=== PATIENT | female | born 1960 | race Caucasian/White ===

== ENCOUNTER 2019-05-11 12:48 | Emergency (ER) | payer BC, OTHER ==
[2019-05-11 13:35] VITALS: BP 111/76; PULSE 94
[2019-05-11] MEDS ORDERED: Ondansetron 4 MG/2 ML SDV IVPUSH ONE (13:58)
[2019-05-11] MEDS ORDERED: Sodium Chloride 0.9% 1,000 ML IV SCH (14:00)
--- NOTE | 2019-05-11 14:09 | EDM.PDOC ---
ED HPI GENERAL MEDICAL PROBLEM - General Chief Complaint: Syncope Stated Complaint: SYNCOPE,VOMITING AND HAS NOT ATE FOR 5 DAYS Time Seen by Provider: 05/11/19 13:29 Source of Information: Reports: Patient, Family, RN Notes Reviewed - History of Present Illness INITIAL COMMENTS - FREE TEXT/NARRATIVE: 59 year old female became ill about 8 to 10 days ago with cough, fever, chills, achiness. She was started on tamiful bid which she is still taking. She has had poor appetite, worsening nausea and vomiting yesterday and today. She is still coughing a lot, occasionally productive. No chest pain at this time, mild intermittent abdominal cramping. She did get weak, dizzy lightheaded standing this AM not long ago, passed out briefly, found herself to be on the floor, no acut injury from the fall. She is diabetic. Blood sugar was over 400 early this morning about 10 hours ago. Headache Pain Score (Numeric/FACES): 7 - Related Data Allergies Allergy/AdvReac Type Severity Reaction Status Date / Time Cephalosporins Allergy Hives Verified 02/22/16 22:03 ciprofloxacin [From Cipro] Allergy Cannot Verified 02/22/16 22:03 Remember fluconazole [From Diflucan] Allergy Hives Verified 02/22/16 22:03 gabapentin Allergy Cannot Verified 02/22/16 22:03 Remember Home Meds: Home Meds Docusate Sodium 300 mg PO DAILY 05/10/15 [History] Insulin Degludec [Tresiba Flextouch U-100] 56 units SQ DAILY 05/10/15 [History] Levothyroxine Sodium [Synthroid] 137 mcg PO DAILY 05/10/15 [History] Potassium Chloride 20 meq PO QID 05/10/15 [History] Spironolactone [Aldactone] 50 mg PO BID 05/10/15 [History] Triamcinolone Acetonide [Triamcinolone Acetonide 0.1% Crm] 1 applic TOP BID 08/18 [History] Verapamil HCl [Verelan] 180 mg PO DAILY 05/10/15 [History] metOLazone [Metolazone] 5 mg PO TUFR 05/10/15 [History] Insulin Aspart [NovoLOG] 12 unit SUBCUT BID@0700,1100 01/09/16 [History] Insulin Aspart [NovoLOG] 17 unit SUBCUT DAILY@1700 01/09/16 [History] Famotidine [Pepcid] 20 mg PO DAILY #30 tablet 01/13/16 [Rx] Colchicine 0.6 mg PO BID 02/22/16 [History] Allopurinol [Zyloprim] 100 mg PO BID 02/23/16 [History] Hydrocodone/Acetaminophen [[place] 5-325] 1 each PO Q4HR PRN 02/23/16 [History] Acetaminophen/Butalbital/Caff [Fioricet 325-50-40 MG] 2 tab PO Q6H PRN #20 tablet 03/05/16 [Rx] Furosemide [Lasix] 20 mg PO BIDDIURETIC #60 tablet 03/05/16 [Rx] Pantoprazole [ProTONIX] 40 mg PO DAILY #30 tab.cr 03/05/16 [Rx] Sertraline HCl [Zoloft] 100 mg PO DAILY #30 tablet 03/05/16 [Rx] fentaNYL [Duragesic] 25 mcg TRDERM Q72H #5 patch 03/05/16 [Rx] oxyCODONE ER [OxyCONTIN] 20 mg PO Q12HR #20 tab.er 03/05/16 [Rx] Ondansetron [Zofran ODT] 4 mg PO Q8HR PRN #7 tab.dis 05/11/19 [Rx] Past Medical History HEENT History: Reports: Impaired Vision, Sinusitis Other HEENT History: wears eyeglasses, blurred vision, conjunctivitis Cardiovascular History: Reports: High Cholesterol, Hypertension, Other (See Below) Other Cardiovascular History: peripheral vascular insufficiency, hypokalemia, edema Respiratory History: Reports: Bronchitis, Recurrent, Other (See Below) Other Respiratory History: cough Gastrointestinal History: Reports: Chronic Constipation Genitourinary History: Reports: Retention, Urinary COMM[employer] History: Reports: , Spontaneous Musculoskeletal History: Reports: Arthritis, Gout, Other (See Below) Other Musculoskeletal History: Carpal tunnel Neurological History: Reports: Migraines Psychiatric History: Reports: None Endocrine/Metabolic History: Reports: Diabetes, Type II, Hypothyroidism, IDDM, Obesity/BMI 30+ Hematologic History: Reports: Anemia Oncologic (Cancer) History: Reports: Breast Dermatologic History: Reports: Chronic Cellulitis, Eczema, Other (See Below) Other Dermatologic History: dermatophytosis of foot, rash, cellulitis - Infectious Disease History Infectious Disease History: Reports: Chicken Pox, Influenza, Measles - Past Surgical History Neurological Surgical History: Reports: None Oncologic Surgical History: Reports: Mastectomy Other Oncologic Surgeries/Procedures: mastectomy in 2002 Social & Family History - Family History Family Medical History: Noncontributory Cardiac: Reports: High Cholesterol, Hypertension OBGYN: Reports: Musculoskeletal: Reports: RA Neurological: Reports: CVA Endocrine/Metabolic: Reports: Diabetes, type II Dermatologic: Reports: Eczema, Seborrheic Dermatitis Oncologic: Reports: Breast, Colon, Prostate - Tobacco Use Smoking Status *Q: Never Smoker Second Hand Smoke Exposure: No - Caffeine Use Caffeine Use: Reports: Soda Caffeine Use Comment: "occassionally" - Recreational Drug Use Recreational Drug Use: No - Living Situation & Occupation Living situation: Reports: Occupation: Disabled ED ROS GENERAL - Review of Systems Review Of Systems: See Below Constitutional: Reports: Fever (gone), Chills HEENT: Reports: Rhinitis (now better), Throat Pain (now better) Respiratory: Reports: Cough, Sputum Cardiovascular: Reports: Chest Pain (with coughing) Endocrine: Reports: Fatigue GI/Abdominal: Reports: Vomiting (occasional). Denies: Abdominal Pain Musculoskeletal: Reports: Other (generalized achiness) Skin: Denies: Rash Neurological: Reports: Dizziness, Headache. Denies: Numbness, Pre-Existing Deficit, Tingling, Difficulty Walking ED EXAM, NEURO - Physical Exam Exam: See Below General Appearance: Alert, Moderate Distress Eye Exam: Bilateral Eye: PERRL Throat/Mouth: Normal Voice, Other (Oral mucosa moderately dry). No: Inflammation Head Exam: Atraumatic. No: Facial Swelling Neck: Supple Respiratory/Chest: No Respiratory Distress, Lungs Clear, Normal Breath Sounds Cardiovascular: Regular Rate, Rhythm GI/Abdominal: Soft, Non-Tender Neurological: Alert, No Motor/Sensory Deficits Back Exam: No: CVA Tenderness (L), CVA Tenderness (R) Extremities: Normal Inspection, Normal Range of Motion. No: Leg Pain, Increased Warmth, Redness Skin Exam: Warm, Intact, Normal Color, No Rash Course - Vital Signs Last Recorded V/S: Last Vital Signs Temp 97.5 F 05/11/19 13:25 Pulse 94 05/11/19 13:25 Resp 16 02/06/20 13:25 BP 111/76 05/11/19 13:25 Pulse Ox 97 05/11/19 13:25 - Orders/Labs/Meds Labs: Laboratory Tests 05/11/19 05/11/19 05/11/19 Range/Units 13:48 13:48 14:06 WBC 9.31 (3.98-10.04) K/mm3 RBC 5.58 H (3.98-5.22) M/mm3 Hgb 17.4 H D (11.2-15.7) gm/dl Hct 49.5 H (34.1-44.9) % MCV 88.7 (79.4-94.8) fl MCH 31.2 (25.6-32.2) pg MCHC 35.2 (32.2-35.5) g/dl RDW Std Deviation 46.0 (36.4-46.3) fL Plt Count 174 L D (182-369) K/mm3 MPV 12.2 (9.4-12.3) fl Neut % (Auto) 74.9 H (34.0-71.1) % Lymph % (Auto) 13.0 L (19.3-51.7) % [place] % (Auto) 11.6 (4.7-12.5) % Eos % (Auto) 0.2 L (0.7-5.8) Baso % (Auto) 0.1 (0.1-1.2) % Neut # (Auto) 6.97 H (1.56-6.13) K/mm3 Lymph # (Auto) 1.21 (1.18-3.74) K/mm3 [place] # (Auto) 1.08 H (0.24-0.36) K/mm3 Eos # (Auto) 0.02 L (0.04-0.36) K/mm3 Baso # (Auto) 0.01 (0.01-0.08) K/mm3 Sodium 126 L D (136-145) mEq/L Potassium 3.2 L (3.5-5.1) mEq/L Chloride 82 L D (98-107) mEq/L Carbon Dioxide 34 H (21-32) mEq/L Anion Gap 13.2 (5-15) BUN 87 H D (7-18) mg/dL Creatinine 1.7 H (0.55-1.02) mg/dL Est Cr Clr Drug Dosing TNP Estimated GFR (MDRD) 31 (>60) mL/min BUN/Creatinine Ratio 51.2 H (14-18) Glucose 312 H (80-115) mg/dL POC Glucose 301 H (80-115) mg/dL Calcium 9.7 (8.5-10.1) mg/dL Total Bilirubin 0.8 (0.2-1.0) mg/dL AST 19 (15-37) U/L ALT 31 (14-59) U/L Alkaline Phosphatase 160 H (46-116) U/L Total Protein 7.9 (6.4-8.2) g/dl Albumin 4.1 (3.4-5.0) g/dl Globulin 3.8 gm/dL Albumin/Globulin Ratio 1.1 (1-2) 05/11/19 Range/Units 15:47 WBC (3.98-10.04) K/mm3 RBC (3.98-5.22) M/mm3 Hgb (11.2-15.7) gm/dl Hct (34.1-44.9) % MCV (79.4-94.8) fl MCH (25.6-32.2) pg MCHC (32.2-35.5) g/dl RDW Std Deviation (36.4-46.3) fL Plt Count (182-369) K/mm3 MPV (9.4-12.3) fl Neut % (Auto) (34.0-71.1) % Lymph % (Auto) (19.3-51.7) % [place] % (Auto) (4.7-12.5) % Eos % (Auto) (0.7-5.8) Baso % (Auto) (0.1-1.2) % Neut # (Auto) (1.56-6.13) K/mm3 Lymph # (Auto) (1.18-3.74) K/mm3 [place] # (Auto) (0.24-0.36) K/mm3 Eos # (Auto) (0.04-0.36) K/mm3 Baso # (Auto) (0.01-0.08) K/mm3 Sodium (136-145) mEq/L Potassium (3.5-5.1) mEq/L Chloride (98-107) mEq/L Carbon Dioxide (21-32) mEq/L Anion Gap (5-15) BUN (7-18) mg/dL Creatinine (0.55-1.02) mg/dL Est Cr Clr Drug Dosing Estimated GFR (MDRD) (>60) mL/min BUN/Creatinine Ratio (14-18) Glucose (80-115) mg/dL POC Glucose 301 H (80-115) mg/dL Calcium (8.5-10.1) mg/dL Total Bilirubin (0.2-1.0) mg/dL AST (15-37) U/L ALT (14-59) U/L Alkaline Phosphatase (46-116) U/L Total Protein (6.4-8.2) g/dl Albumin (3.4-5.0) g/dl Globulin gm/dL Albumin/Globulin Ratio (1-2) Meds: Medications Discontinued Medications Generic Name Dose Route Start Last Admin Trade Name Freq PRN Reason Stop Dose Admin Sodium Chloride 1,000 mls @ 999 mls/hr 05/11/19 14:00 05/11/19 14:07 Normal Saline IV 999 mls/hr ONETIME COREEN Administration Lactated Ringer's 1,000 mls @ 150 mls/hr 05/11/19 15:45 05/11/19 15:48 Ringers, Lactated IV 150 mls/hr ASDIRECTED COREEN Administration Insulin Human Regular 8 unit 05/11/19 14:26 05/11/19 14:49 Humulin R SUBCUT 05/11/19 14:27 8 unit ONETIME ONE Administration Insulin Human Regular 4 unit 05/11/19 16:31 05/11/19 17:20 Humulin R SUBCUT 05/11/19 16:32 4 unit ONETIME ONE Administration Ondansetron HCl 4 mg 05/11/19 13:58 05/11/19 14:07 Zofran IVPUSH 05/11/19 13:59 4 mg ONETIME ONE Administration Ondansetron HCl 4 mg 05/11/19 17:34 05/11/19 17:52 Zofran Odt PO 05/11/19 17:35 4 mg ONETIME ONE Administration - Re-Assessments/Exams Free Text/Narrative Re-Assessment/Exam: 05/13/19 08:51 Patient was treated with IV fluid, IV Zofran, 2 doses of insulin subcutaneous short acting. With all of that her symptoms did improve. Chest x-ray did not show pneumonia. Discharge instructions as documented. Departure - Departure Time of Disposition: 17:46 Disposition: Home, Self-Care 01 Condition: Fair Clinical Impression: Influenza, Bronchitis, Vomiting, Syncope - Discharge Information Prescriptions: Ondansetron [Zofran ODT] 4 mg PO Q8HR PRN #7 tab.dis PRN Reason: Nausea/Vomiting Instructions: Acute Bronchitis, Adult Referrals: Ramin Palencia MD [Primary Care Provider] - Forms: ED Department Discharge Additional Instructions: Stop the Tamiflu, clear liquids and bland diet as tolerated, drink plenty of water to maintain hydration. Vaporizer or steam as needed for cough. Follow-up clinic if not much better within 3-5 days as expected. Return to ED as needed. Sepsis Event Note - Evaluation Sepsis Screening Result: No Definite Risk - Focused Exam Date Exam was Performed: 05/13/19 Time Exam was Performed: 08:47
[2019-05-11] MEDS ORDERED: Insulin Regular, Human 100 Units/ML 3 ML Vial SUBCUT ONE ×2 (14:26→16:31)
--- NOTE | 2019-05-11 14:34 | CR ---
Chest: Portable view of the chest was obtained. Comparison: Previous chest x-ray of 02/24/16. Heart size is normal. Upper mediastinum is normal. Lungs are clear. Degenerative endplate spurring is noted within the spine. Surgical clips are seen within left axillary region. Impression: 1. Nothing acute is appreciated on portable chest x-ray. Diagnostic code #2 Study was dictated in [place] Standard Time
[2019-05-11] MEDS ORDERED: Lactated Ringers 1,000 ML IV SCH (15:45)
[2019-05-11] MEDS ORDERED: Ondansetron 4 MG Tab.DIS PO ONE (17:34)
== END 2019-05-11 17:56 | disposition home or self-care (01) ==
LOC: JD.ED 12:48
DX: J11.1 Influenza due to unidentified influenza virus with other respiratory manifestations (principal); R55 Syncope and collapse; E11.9 Type 2 diabetes mellitus without complications; M10.9 Gout, unspecified; E03.9 Hypothyroidism, unspecified; E66.9 Obesity, unspecified; Z86.73 Personal history of transient ischemic attack (TIA), and cerebral infarction without residual deficits; Z79.4 Long term (current) use of insulin; Z88.8 Allergy status to other drugs, medicaments and biological substances
CPT/HCPCS: 36415; 71045; 80053; 82962; 85025; 96361; 96374; 99284; A9270; J1815; J2405; J7030; J7120

== ENCOUNTER 2020-04-10 10:56 | Inpatient (IN) | payer OTHER ==
[2020-04-10] MEDS ORDERED: Ondansetron 4 MG/2 ML SDV IV PRN (11:13)
[2020-04-10] MEDS ORDERED: FLU VACC QS2020-21(6MOS UP)/PF 60 MCG/0.5 ML SYRINGE IM ONE (11:30)
[2020-04-10] MEDS ORDERED: Sodium Chloride 0.9% 10 ML Syringe FLUSH PRN (11:44)
[2020-04-10] MEDS ORDERED: Lactated Ringers 1,000 ML IV SCH (12:15)
[2020-04-10] MEDS: Acetaminophen 325 MG Tab PO PRN ×2 (12:38→21:00)
[2020-04-10 12:55] LABS: HEMOGLOBIN A1C 10.3 % (4.50-6.20)
[2020-04-10] MEDS ORDERED: Meropenem Premix 500 MG in Premix Bag 1 BAG IV SCH (13:00)
--- NOTE | 2020-04-10 13:03 | PCM.HP.2 ---
H&P History of Present Illness - General Date of Service: 04/10/20 Admit Problem/Dx: Admission Diagnosis/Problem Admission Diagnosis/Problem Foot infection Source of Information: Patient, Old Records, Provider, RN, RN Notes Reviewed History Limitations: Reports: No Limitations - History of Present Illness Initial Comments - Free Text/Narative: This is a 60-year-old female who presents as a direct admit from her primary care provider, Dr. Palencia. Patient reports worsening third digit right toe pain which has been ongoing for 4 to 5 days. Patient has a rather lengthy prior medical history including significant bilateral lower extremity edema, breast cancer status postmastectomy, hyperlipidemia, type II DM on insulin therapy, hypothyroidism, prior MRSA infection, gout, obesity, CKD stage III, hypertension, PVD. Her primary care provider she has not followed up with him in over a year. Patient is on both long and short acting insulin including somewhat of a sliding scale. Patient reports she is instructed to take her blood sugar at least 3 times a day but she has not been doing that. She reports she pretty much always checks it at least once a day. Reports blood sugars have been in the 200s. Reports that she has often missed her insulin dosing and has at times ran out of medications. She reports that she was unaware her toe infection was so severe, but does note that it has been quite painful. She reports for a while she was taping 1 toe to the other. Reports she has been unable to remain off her feet and this is likely a contributing factor. She reports an unintentional 60 pound weight loss over the past 6 months or so. She denies any recent fever, chills, chest pain, shortness of breath, abdominal pain, constipation, diarrhea, nausea, vomiting, dizziness, urinary symptoms. She reports she is allergic to several different antibiotics including cephalosporins and Cipro. On examination there is a very significant ulcer on her third digit with erythema extending up to the ankle. Area is very warm to touch. There is significant sloughing skin. Patient was made aware by her primary care provider that her toe may need to be amputated, and if this is the case we have no one locally who will do it while she is inpatient. This could mean she may be transferred to [place]. She subsequently admitted inpatient for IV antibiotics and further work-up of her toe infection, rule out osteomyelitis. She is a DNR/DNI. - Related Data Allergies/Adverse Reactions: Allergies Allergy/AdvReac Type Severity Reaction Status Date / Time Cephalosporins Allergy Hives Verified 02/22/16 22:03 ciprofloxacin [From Cipro] Allergy Cannot Verified 02/22/16 22:03 Remember fluconazole [From Diflucan] Allergy Hives Verified 02/22/16 22:03 gabapentin Allergy Cannot Verified 02/22/16 22:03 Remember latex Allergy Rash Verified 04/10/20 11:30 Home Medications: Home Meds Docusate Sodium 100 mg PO DAILY PRN 05/10/15 [History] Insulin Degludec [Tresiba Flextouch U-100] 70 units SQ DAILY 05/10/15 [History] Levothyroxine Sodium [Synthroid] 137 mcg PO DAILY 05/10/15 [History] Potassium Chloride 20 meq PO QID 05/10/15 [History] Spironolactone [Aldactone] 50 mg PO BID 05/10/15 [History] Verapamil HCl [Verelan] 180 mg PO DAILY 05/10/15 [History] metOLazone [Metolazone] 5 mg PO ASDIRECTED 05/10/15 [History] Insulin Aspart [NovoLOG] 14 - 20 unit SUBCUT ASDIRECTED 01/09/16 [History] Colchicine 0.6 mg PO DAILY 02/22/16 [History] Allopurinol [Zyloprim] 200 mg PO DAILY 02/23/16 [History] Ondansetron [Zofran ODT] 4 mg PO Q8HR PRN #7 tab.dis 05/11/19 [Rx] Allopurinol [Zyloprim] 300 mg PO DAILY 04/10/20 [History] Cinnamon Bark [Cinnamon] 500 mg PO DAILY 04/10/20 [History] Diclofenac Sodium [Voltaren] 1 - 2 gram TOP BID 04/10/20 [History] Furosemide 20 mg PO BID 04/10/20 [History] Furosemide [Lasix] 80 mg PO BIDDIURETIC 04/10/20 [History] diphenhydrAMINE HCL [Benadryl Allergy] 25 mg PO Q4HR PRN 04/10/20 [History] Past Medical History HEENT History: Reports: Impaired Vision, Sinusitis Other HEENT History: wears eyeglasses, blurred vision, conjunctivitis Cardiovascular History: Reports: High Cholesterol, Hypertension, Other (See Below) Other Cardiovascular History: peripheral vascular insufficiency, hypokalemia, edema Respiratory History: Reports: Bronchitis, Recurrent Other Respiratory History: cough Gastrointestinal History: Reports: Chronic Constipation Genitourinary History: Reports: Retention, Urinary PROPERTY OFFICER History: Reports: , Spontaneous Musculoskeletal History: Reports: Arthritis, Gout, Other (See Below) Other Musculoskeletal History: Carpal tunnel Neurological History: Reports: Migraines Psychiatric History: Reports: None Endocrine/Metabolic History: Reports: Diabetes, Type II, Hypothyroidism, IDDM, Obesity/BMI 30+ Hematologic History: Reports: Anemia Oncologic (Cancer) History: Reports: Breast Dermatologic History: Reports: Chronic Cellulitis, Eczema, Other (See Below) Other Dermatologic History: dermatophytosis of foot, rash, cellulitis - Infectious Disease History Infectious Disease History: Reports: Chicken Pox, Influenza, Measles - Past Surgical History HEENT Surgical History: Reports: Tonsillectomy Cardiovascular Surgical History: Reports: None Respiratory Surgical History: Reports: None GI Surgical History: Reports: Colonoscopy Female Surgical History: Reports: D&C, Mastectomy Other Female Surgeries/Procedures: L mastectomy Endocrine Surgical History: Reports: None Neurological Surgical History: Reports: None Oncologic Surgical History: Reports: Mastectomy Other Oncologic Surgeries/Procedures: mastectomy in 2002 Social & Family History - Family History Family Medical History: No Pertinent Family History Cardiac: Reports: High Cholesterol, Hypertension OBGYN: Reports: Musculoskeletal: Reports: RA Neurological: Reports: CVA Endocrine/Metabolic: Reports: Diabetes, type II Dermatologic: Reports: Eczema, Seborrheic Dermatitis Oncologic: Reports: Breast, Colon, Prostate - Tobacco Use Tobacco Use Status *Q: Never Tobacco User - Caffeine Use Caffeine Use: Reports: Soda Caffeine Use Comment: "occassionally" - Recreational Drug Use Recreational Drug Use: No - Living Situation & Occupation Living situation: Reports: Occupation: Disabled H&P Review of Systems - Review of Systems: Review Of Systems: See Below General: Reports: Weight Loss. Denies: Fever, Chills, Malaise, Weakness, Fatigue HEENT: Reports: No Symptoms. Denies: Headaches, Sore Throat Pulmonary: Reports: No Symptoms. Denies: Shortness of Breath, Wheezing, Pleuritic Chest Pain, Cough, Sputum Cardiovascular: Reports: Edema (chronic ). Denies: Chest Pain, Palpitations Gastrointestinal: Reports: No Symptoms. Denies: Abdominal Pain, Constipation, Diarrhea, Nausea, Vomiting Genitourinary: Reports: No Symptoms. Denies: Pain Musculoskeletal: Reports: Foot Pain (right ) Skin: Reports: No Symptoms. Denies: Cyanosis Psychiatric: Reports: No Symptoms. Denies: Confusion Neurological: Reports: No Symptoms. Denies: Numbness, Tingling, Difficulty Walking, Weakness, Gait Disturbance Hematologic/Lymphatic: Reports: No Symptoms Immunologic: Reports: No Symptoms Exam - Exam Exam: See Below - Vital Signs Vital Signs: Last Vital Signs Temp 98.1 F 04/10/20 11:14 Pulse 79 04/10/20 11:16 Resp 16 04/10/20 11:14 BP 109/59 L 04/10/20 11:14 Pulse Ox 99 04/10/20 11:16 Weight: 216 lb 8 oz - Exam Quality Assessment: DVT Prophylaxis. No: Supplemental Oxygen General: Alert, Oriented, Cooperative. No: Mild Distress HEENT: Conjunctiva Clear, EACs Clear, Mucosa Moist & [place], Posterior Pharynx Clear Neck: Supple, Trachea Midline Lungs: Clear to Auscultation, Normal Respiratory Effort Cardiovascular: Regular Rate, Regular Rhythm GI/Abdominal Exam: Normal Bowel Sounds, Soft, Non-Tender, No Distention (Female) Exam: Deferred Rectal (Female) Exam: Deferred Back Exam: Normal Inspection, Full Range of Motion Extremities: Normal Range of Motion, Normal Capillary Refill, Pedal Edema (4+ bilaterally ), Leg Pain, Increased Warmth, Redness (dorsal aspect of foot up to ankle. ), Other (Bilateral discoloration and scaly skin of lower extremities consistent with PVD. Large ulcer on 3rd digit with skin sluffing off. ) Peripheral Pulses: 2+: Radial (L), Radial (R) Skin: Warm, Dry, Intact Neurological: Cranial Nerves Intact (Grossly ) Neuro Extensive - Mental Status: Alert, Oriented x3, Normal Mood/Affect - Patient Data Lab Results Last 24 hrs: Laboratory Results - last 24 hr 04/10/20 Range/Units 12:15 WBC 13.60 H (3.98-10.04) K/mm3 RBC 4.28 (3.98-5.22) M/mm3 Hgb 13.4 D (11.2-15.7) gm/dl Hct 39.9 (34.1-44.9) % MCV 93.2 D (79.4-94.8) fl MCH 31.3 (25.6-32.2) pg MCHC 33.6 (32.2-35.5) g/dl RDW Std Deviation 44.7 (36.4-46.3) fL Plt Count 266 D (182-369) K/mm3 MPV 10.5 (9.4-12.3) fl Neut % (Auto) 79.8 H (34.0-71.1) % Lymph % (Auto) 10.9 L (19.3-51.7) % Lane % (Auto) 7.7 (4.7-12.5) % Eos % (Auto) 1.0 (0.7-5.8) Baso % (Auto) 0.1 (0.1-1.2) % Neut # (Auto) 10.84 H (1.56-6.13) K/mm3 Lymph # (Auto) 1.48 (1.18-3.74) K/mm3 Lane # (Auto) 1.05 H (0.24-0.36) K/mm3 Eos # (Auto) 0.14 (0.04-0.36) K/mm3 Baso # (Auto) 0.02 (0.01-0.08) K/mm3 Manual Slide Review Normal smear Result Diagrams: 04/10/20 12:15 04/10/20 12:15 Sepsis Event Note - Focused Exam Vital Signs: Vital Signs Temp Pulse Resp BP Pulse Ox 04/10/20 11:16 79 99 04/10/20 11:14 98.1 F 16 109/59 L - Problem List (1) Cellulitis of right foot SNOMED Code(s): 342497144 ICD Code: L03.115 - CELLULITIS OF RIGHT LOWER LIMB Status: Acute Priority: High Current Visit: Yes (2) Chronic venous insufficiency SNOMED Code(s): 37056827, 21932255 ICD Code: I87.2 - VENOUS INSUFFICIENCY (CHRONIC) (PERIPHERAL) Status: Chronic Priority: Medium Current Visit: Yes (3) History of MRSA infection SNOMED Code(s): 998523762, 349826421 ICD Code: Z86.14 - PERSONAL HISTORY OF METHICILLIN RESIS STAPH INFECTION Status: Chronic Priority: Medium Current Visit: No (4) Fibromyalgia SNOMED Code(s): 314691604 ICD Code: M79.7 - FIBROMYALGIA Status: Chronic Priority: Low Current Visit: No (5) Weight loss SNOMED Code(s): 32931426, 765567269 ICD Code: R63.4 - ABNORMAL WEIGHT LOSS Status: Acute Priority: High Current Visit: Yes (6) Lymphedema of both lower extremities SNOMED Code(s): 78271069776866122 ICD Code: I89.0 - LYMPHEDEMA, NOT ELSEWHERE CLASSIFIED Status: Chronic Priority: Low Current Visit: No (7) Diabetes mellitus SNOMED Code(s): 58042041 ICD Code: E11.9 - TYPE 2 DIABETES MELLITUS WITHOUT COMPLICATIONS Status: Chronic Priority: Medium Current Visit: No Qualifiers: Diabetes mellitus type: type 2 Diabetes mellitus buttermaker continuous churn insulin use: with buttermaker continuous churn use Diabetes mellitus complication status: with hyperglycemia Qualified Code(s): E11.65 - Type 2 diabetes mellitus with hyperglycemia; Z79.4 - group home (current) use of insulin (8) Hyperlipidemia SNOMED Code(s): 05980316 ICD Code: E78.5 - HYPERLIPIDEMIA, UNSPECIFIED Status: Chronic Priority: Medium Current Visit: No (9) Hypothyroidism SNOMED Code(s): 25333286 ICD Code: E03.9 - HYPOTHYROIDISM, UNSPECIFIED Status: Chronic Priority: Low Current Visit: No Qualifiers: Hypothyroidism type: unspecified Qualified Code(s): E03.9 - Hypothyroidism, unspecified (10) Morbid obesity SNOMED Code(s): 788569600 ICD Code: E66.01 - MORBID (SEVERE) OBESITY DUE TO EXCESS CALORIES Status: Chronic Priority: Medium Current Visit: No (11) S/P left mastectomy SNOMED Code(s): 533925915, 395216808 ICD Code: Z90.12 - ACQUIRED ABSENCE OF LEFT BREAST AND NIPPLE Status: Chronic Priority: Low Current Visit: No (12) CKD stage 3 secondary to diabetes SNOMED Code(s): 346735724, 805752867 ICD Code: E11.22 - TYPE 2 DIABETES MELLITUS W DIABETIC CHRONIC KIDNEY DISEASE; N18.30 - CHRONIC KIDNEY DISEASE, STAGE 3 UNSPECIFIED Status: Chronic Priority: High Current Visit: Yes (13) Medical non-compliance SNOMED Code(s): 482611630 ICD Code: Z91.19 - PATIENT'S NONCOMPLIANCE W OTH MEDICAL TREATMENT AND REGIMEN Status: Acute Priority: High Current Visit: Yes (14) Diabetic foot ulcer SNOMED Code(s): 369055843 ICD Code: E11.621 - TYPE 2 DIABETES MELLITUS WITH FOOT ULCER; L97.509 - NON- PRESSURE CHRONIC ULCER OTH PRT UNSP FOOT W UNSP SEVERITY Status: Acute Priority: High Current Visit: Yes Qualifiers: Diabetic foot ulcer location: toe Diabetes mellitus type: type 2 Laterality: right Non-pressure ulcer stage: unspecified non-pressure ulcer stage Qualified Code(s): E11.621 - Type 2 diabetes mellitus with foot ulcer; L97.519 - Non-pressure chronic ulcer of other part of right foot with unspecified severity (15) Hyponatremia SNOMED Code(s): 67599578 ICD Code: E87.1 - HYPO-OSMOLALITY AND HYPONATREMIA Status: Acute Current Visit: Yes (16) Hypokalemia due to loss of potassium SNOMED Code(s): 54110772 ICD Code: E87.6 - HYPOKALEMIA Status: Acute Current Visit: No Problem List Initiated/Reviewed/Updated: Yes Orders Last 24hrs: Active Orders 24 hr Category Date Time Status Admission Status [Patient Status] [ADT] Routine ADT 04/10/20 11:10 Active Height and Weight [RC] 06 Care 04/10/20 11:13 Active Influenza Vaccine Charge [RC] .DISCHARGE Care 04/10/20 11:18 Active Intake and Output [RC] 04,16 Care 04/10/20 11:13 Active Nurse Communication: Isolation [RC] ASDIRECTED Care 04/10/20 11:56 Active Oxygen Therapy [RC] PRN Care 04/10/20 11:13 Active Peripheral IV Care [RC] . DIRECTED Care 04/10/20 11:44 Active Pulse Oximetry [RC] PRN Care 04/10/20 11:13 Active Up With Assistance [RC] ASDIRECTED Care 04/10/20 11:13 Active VTE/DVT Education [RC] PER UNIT ROUTINE Care 04/10/20 11:13 Active Vital Signs [RC] Q4HR Care 04/10/20 11:13 Active Consult to Case Management/Ash Handler [CONS] Cons 04/10/20 11:47 Active Routine Consult to Diabetic Nurse Specialist [CONS] Routine Cons 04/10/20 11:47 Active Consult to Dietary [Consult to Well Puller Head] [CONS] Cons 04/10/20 11:47 Active Routine Consult to Physical Therapy [PT Evaluation and Cons 04/10/20 11:57 Active Treatment] [CONS] Routine Consistent Carbohydrate Diet [DIET] Diet 04/10/20 Dinner Active Foot wo Cont Rt [MR] Routine Exams 04/10/20 11:50 Ordered A1C [GLYCOSYLATED HEMOGLOBIN,HGBA1C] [CHEM] Routine Lab 04/10/20 12:15 Received C-REACTIVE PROTEIN [CHEM] Routine Lab 04/10/20 12:15 Received CMP [COMPREHENSIVE METABOLIC PN,CMP] [CHEM] Routine Lab 04/10/20 12:15 Received CORONAVIRUS COVID-19 WENDI [MOLEC] Routine Lab 04/10/20 11:48 Ordered CULTURE WOUND [RM] Routine Lab 04/10/20 12:00 Received ESR [SEDIMENTATION RATE AUTO] [HEME] Routine Lab 04/10/20 12:15 Received MAGNESIUM [CHEM] Routine Lab 04/10/20 12:15 Received PROCALCITONIN [REF] Routine Lab 04/10/20 12:15 Received TSH [CHEM] Routine Lab 04/10/20 12:15 Received URIC ACID [CHEM] Routine Lab 04/10/20 12:55 Ordered Acetaminophen [TylenoL] Med 04/10/20 11:13 Active 650 mg PO Q4H PRN Lactated Ringers [Ringers, Lactated] 1,000 ml Med 04/10/20 12:15 Active IV ASDIRECTED Linezolid [Zyvox] 600 mg Med 04/10/20 12:15 Pending Premix Bag 1 bag IV Q12H Ondansetron [Zofran] Med 04/10/20 11:13 Active 4 mg IV Q6H PRN Piperacillin/Tazobactam [Piperacil-Tazobact] 4.5 gm Med 04/10/20 12:04 Ordered Sodium Chloride 0.9% [Normal Saline] 100 ml IV ONETIME Sodium Chloride 0.9% [Saline Flush] Med 04/10/20 11:44 Active 10 ml FLUSH ASDIRECTED PRN Isolation [COMM] Routine Oth 04/10/20 11:56 Ordered Peripheral IV Insertion Adult [OM.PC] Routine Oth 04/10/20 11:44 Ordered Resuscitation Status Routine Resus Stat 04/10/20 11:29 Ordered Medication Orders Acetaminophen (Tylenol) 650 mg PO Q4H PRN PRN Reason: Pain (Mild 1-3)/fever Last Admin: 04/10/20 12:38 Dose: 650 mg Documented by: WILLIAM Lactated Ringer's (Ringers, Lactated) 1,000 mls @ 75 mls/hr IV ASDIRECTED COREEN Stop: 04/11/20 01:34 Linezolid 600 mg/ Premix 300 mls @ 300 mls/hr IV Q12H COREEN Piperacillin Sod/Tazobactam (Sod 4.5 gm/ Sodium Chloride) 100 mls @ 200 mls/hr IV ONETIME ONE Stop: 04/10/20 12:33 Ondansetron HCl (Zofran) 4 mg IV Q6H PRN PRN Reason: Nausea/Vomiting Sodium Chloride (Saline Flush) 10 ml FLUSH ASDIRECTED PRN PRN Reason: Keep Vein Open Assessment/Plan Comment:: Assessment - Day of admission - 04/10/2020 * 60 yo female sent over by PCP, Dr. Palencia for direct admit due to diabetic foot ulcer of right 3rd digit * Patient reports ulcer present for past 4-5 days * Significant ulcer noted with sluffing of skin * Denies fever, chills, or other infectious symptoms * Insulin dependent diabetic who reports she forgets to check blood glucose or take meds at times. Has meds run out occasionally. * History of: 2 DM, hypertension, lymphedema, morbid obesity, MRSA infection, PVD, fibromyalgia, hyperlipidemia, CKD stage III, Gout * Reports blood sugars have been in the two hundreds recently. * Per primary care provider patient has not followed up in over a year. * Patient also reports approximately 60 pound weight loss over past 6 months, unintentional * Renal function appears to be near baseline per prior notes * Labs: * WBC 13.60 * Hemoglobin 13.4 * Platelet 266 * Absolute neutrophils 10.84 * ESR of 83 * Sodium 129 * Potassium 3.1 * Chloride 89 * Carbon dioxide 32 * Anion gap 11.1 * BUN 53 * Creatinine 1.6 * GFR 33 * Glucose 220 * A1c 10.3 * Uric acid 5.4 * Magnesium 2.1 * Bilirubin 0.5 * AST 20, ALT 42, alkaline phosphatase 129 * CRP 16.0 * Albumin 3.1 * TSH 3.198 * SARS-CoV-2 RNA negative * Patient admitted to [facility] for IV abx and osteomyelitis r/o Plan: Diabetic foot ulcer Cellulitis of right foot Chronic venous insufficiency History of MRSA infection Lymphedema of both lower extremities Diabetes mellitus Morbid obesity Medical non-compliance CKD stage 3 secondary to diabetes History of gout * Start IV linezolid and Zosyn * Monitor labs, especially renal function * MRI of foot to rule out osteomyelitis * PT wound care * Dietitian consult * sap security consultant consult * Continue long-acting insulin * Sliding scale medium intensity insulin * 4 times daily before meals and bedtime glucose checks * Distant carbohydrate diet * Contact precautions given prior MRSA infection * MRSA screen * Culture wound * Blood cultures x2 * Obtain procalcitonin * Gentle IV fluids as ordered * Pain medications as ordered * Continue home gout medications * Lathe Operator Contact Lens patient on importance of medications Hypokalemia Hyponatremia Weight loss * Supplement potassium * 2 L fluid restriction * Cammy IV fluids - NS * Recheck labs * Dietitian consult * Follow-up with PCP after discharge Fibromyalgia Hyperlipidemia Hypothyroidism S/P left mastectomy * Pain medications as ordered * Continue home medications as ordered * Obtain lipid panel from [place] Code status: DNR/DNI PCP: Dr. Palencia DVT Prophylaxis: Heparin Disposition: Patient admitted to [facility] for management and workup of diabetic foot ulcer. LOS dependant on scan results, response to treatment. Prognosis: Good - Mortality Measure Prognosis:: Good
[2020-04-10] MEDS ORDERED: Piperacillin/Tazobactam 4.5 GM in Sodium Chloride 0.9% 100 ML IV ONE (14:00)
[2020-04-10] MEDS: Potassium Chloride 20 MEQ Tab.ER PO SCH ×2 (14:51→22:03)
[2020-04-10] MEDS: Linezolid 600 MG in Premix Bag 1 BAG IV SCH (14:59)
[2020-04-10] MEDS ORDERED: Heparin Sodium 5,000 Units/ML Vial SUBCUT SCH (15:00)
[2020-04-10] MEDS ORDERED: Docusate Sodium 100 MG Cap PO PRN (15:15)
[2020-04-10] MEDS ORDERED: Acetaminophen/HYDROcodone 325-5 MG Tab PO PRN (15:17)
[2020-04-10] MEDS ORDERED: Morphine 2 MG/ML SYRINGE IVPUSH PRN (15:18)
[2020-04-10] MEDS ORDERED: Furosemide 20 MG Tab PO SCH (21:00)
[2020-04-10] MEDS: Spironolactone 25 MG Tab PO SCH (22:03)
[2020-04-10] MEDS: Diclofenac Sodium 1% Gel 100 GM Tube TOP SCH (22:05)
[2020-04-10] MEDS: Piperacillin/Tazobactam 4.5 GM in Sodium Chloride 0.9% 100 ML IV SCH (22:05)
[2020-04-11] MEDS: Linezolid 600 MG in Premix Bag 1 BAG IV SCH (01:50)
[2020-04-11] MEDS: Piperacillin/Tazobactam 4.5 GM in Sodium Chloride 0.9% 100 ML IV SCH (05:47)
[2020-04-11] MEDS ORDERED: Levothyroxine 25 MCG Tab PO SCH (06:00)
[2020-04-11] MEDS ORDERED: Levothyroxine 112 MCG Tab PO SCH (06:00)
[2020-04-11] MEDS ORDERED: Furosemide 80 MG Tab PO SCH (06:00)
[2020-04-11 08:19] VITALS: BP 124/62; PULSE 77
--- NOTE | 2020-04-11 08:29 | MR ---
MRI right foot Technique: T1 and fat-suppressed inversion recovery sagittal; T2 fat-suppressed, T2 weighted and proton weighted coronal; T1 and T2 fat-suppressed axial images were obtained. Findings: There is diffuse soft tissue edema being seen. Soft tissue edema is most prominent within the third toe. Mild edema is noted within the distal phalanx of the third toe in the area of the soft tissue swelling compatible with osteomyelitis. There is lateral angulation of the first toe being seen. No other acute abnormality is otherwise seen. Impression: 1. Diffuse soft tissue swelling most prominent within the third toe. 2. Diffuse edema within the distal phalanx of the third toe compatible with osteomyelitis. 3. No additional bone marrow edema is seen. 4. Other findings as noted above. Diagnostic code #5 MTDD
[2020-04-11] MEDS: Potassium Chloride 20 MEQ Tab.ER PO SCH (08:40)
[2020-04-11] MEDS: Spironolactone 25 MG Tab PO SCH (08:42)
[2020-04-11] MEDS ORDERED: Magnesium Sulfate/Water 2 GM/50 ML BAG IV ONE (08:53)
[2020-04-11] MEDS ORDERED: Heparin Sodium 5,000 Units/ML Vial SUBCUT SCH (09:00)
[2020-04-11] MEDS ORDERED: Insulin Glarg,Human.Rec.Analog 100 Unit/ML SUBCUT SCH (09:00)
[2020-04-11] MEDS ORDERED: Allopurinol 100 MG Tab PO SCH (09:00)
[2020-04-11] MEDS ORDERED: Verapamil 180 MG Tab.ER PO SCH (09:00)
[2020-04-11] MEDS ORDERED: Colchicine 0.6 MG Tab PO SCH (09:00)
--- NOTE | 2020-04-11 09:05 | PCM.DCSUM1 ---
Discharge Summary - Hospital Course HPI Initial Comments: This is a 60-year-old female who presents as a direct admit from her primary care provider, Dr. Palencia. Patient reports worsening third digit right toe pain which has been ongoing for 4 to 5 days. Patient has a rather lengthy prior medical history including significant bilateral lower extremity edema, breast cancer status postmastectomy, hyperlipidemia, type II DM on insulin therapy, hypothyroidism, prior MRSA infection, gout, obesity, CKD stage III, hyper tension, PVD. Her primary care provider she has not followed up with him in over a year. Patient is on both long and short acting insulin including somewhat of a sliding scale. Patient reports she is instructed to take her blood sugar at least 3 times a day but she has not been doing that. She reports she pretty much always checks it at least once a day. Reports blood sugars have been in the 200s. Reports that she has often missed her insulin dosing and has at times ran out of medications. She reports that she was unaware her toe infection was so severe, but does note that it has been quite painful. She reports for a while she was taping 1 toe to the other. Reports she has been unable to remain off her feet and this is likely a contributing factor. She reports an unintentional 60 pound weight loss over the past 6 months or so. She denies any recent fever, chills, chest pain, shortness of breath, abdominal pain, constipation, diarrhea, nausea, vomiting, dizziness, urinary symptoms. She reports she is allergic to several different antibiotics including cephalosporins and Cipro. On examination there is a very significant ulcer on her third digit with erythema extending up to the ankle. Area is very warm to touch. There is significant sloughing skin. Patient was made aware by her primary care provider that her toe may need to be amputated, and if this is the case we have no one locally who will do it while she is inpatient. This could mean she may be transferred to [place]. She subsequently admitted inpatient for IV antibiotics and further work-up of her toe infection, rule out osteomyelitis. She is a DNR/DNI. - Discharge Data Discharge Date: 04/11/20 (Admission date: 04/10/20) Discharge Disposition: DC/Tfer to Acute Hospital 02 Condition: Stable - Referral to Home Health Primary Care Physician: Ramin Palencia MD - Discharge Diagnosis/Problem(s) (1) Cellulitis of right foot SNOMED Code(s): 592692545 ICD Code: L03.115 - CELLULITIS OF RIGHT LOWER LIMB Status: Acute Priority: High Current Visit: Yes (2) Chronic venous insufficiency SNOMED Code(s): 06082714, 90008613 ICD Code: I87.2 - VENOUS INSUFFICIENCY (CHRONIC) (PERIPHERAL) Status: Chronic Priority: Medium Current Visit: Yes (3) History of MRSA infection SNOMED Code(s): 476208613, 379861365 ICD Code: Z86.14 - PERSONAL HISTORY OF METHICILLIN RESIS STAPH INFECTION Status: Chronic Priority: Medium Current Visit: No (4) Fibromyalgia SNOMED Code(s): 281640796 ICD Code: M79.7 - FIBROMYALGIA Status: Chronic Priority: Low Current Visit: No (5) Weight loss SNOMED Code(s): 06990387, 399391871 ICD Code: R63.4 - ABNORMAL WEIGHT LOSS Status: Acute Priority: High Current Visit: Yes (6) Lymphedema of both lower extremities SNOMED Code(s): 97958708061372599 ICD Code: I89.0 - LYMPHEDEMA, NOT ELSEWHERE CLASSIFIED Status: Chronic Priority: Low Current Visit: No (7) Diabetes mellitus SNOMED Code(s): 74628352 ICD Code: E11.9 - TYPE 2 DIABETES MELLITUS WITHOUT COMPLICATIONS Status: Chronic Priority: Medium Current Visit: No Qualifiers: Diabetes mellitus type: type 2 Diabetes mellitus mcfp insulin use: with terminal press operator use Diabetes mellitus complication status: with hyperglycemia Qualified Code(s): E11.65 - Type 2 diabetes mellitus with hyperglycemia; Z79.4 - retirement (current) use of insulin (8) Hyperlipidemia SNOMED Code(s): 46781344 ICD Code: E78.5 - HYPERLIPIDEMIA, UNSPECIFIED Status: Chronic Priority: Medium Current Visit: No (9) Hypothyroidism SNOMED Code(s): 70746435 ICD Code: E03.9 - HYPOTHYROIDISM, UNSPECIFIED Status: Chronic Priority: Low Current Visit: No Qualifiers: Hypothyroidism type: unspecified Qualified Code(s): E03.9 - Hypothyroidism, unspecified (10) Morbid obesity SNOMED Code(s): 631789909 ICD Code: E66.01 - MORBID (SEVERE) OBESITY DUE TO EXCESS CALORIES Status: Chronic Priority: Medium Current Visit: No (11) S/P left mastectomy SNOMED Code(s): 510822960, 868472943 ICD Code: Z90.12 - ACQUIRED ABSENCE OF LEFT BREAST AND NIPPLE Status: Chronic Priority: Low Current Visit: No (12) CKD stage 3 secondary to diabetes SNOMED Code(s): 884313304, 584805808 ICD Code: E11.22 - TYPE 2 DIABETES MELLITUS W DIABETIC CHRONIC KIDNEY DISEASE; N18.30 - CHRONIC KIDNEY DISEASE, STAGE 3 UNSPECIFIED Status: Chronic Priority: High Current Visit: Yes (13) Medical non-compliance SNOMED Code(s): 201050622 ICD Code: Z91.19 - PATIENT'S NONCOMPLIANCE W OTH MEDICAL TREATMENT AND REGIMEN Status: Acute Priority: High Current Visit: Yes (14) Diabetic foot ulcer SNOMED Code(s): 989247046 ICD Code: E11.621 - TYPE 2 DIABETES MELLITUS WITH FOOT ULCER; L97.509 - NON- PRESSURE CHRONIC ULCER OTH PRT UNSP FOOT W UNSP SEVERITY Status: Acute Priority: High Current Visit: Yes Qualifiers: Diabetic foot ulcer location: toe Diabetes mellitus type: type 2 Laterality: right Non-pressure ulcer stage: unspecified non-pressure ulcer stage Qualified Code(s): E11.621 - Type 2 diabetes mellitus with foot ulcer; L97.519 - Non-pressure chronic ulcer of other part of right foot with unspecified severity (15) Hyponatremia SNOMED Code(s): 80380358 ICD Code: E87.1 - HYPO-OSMOLALITY AND HYPONATREMIA Status: Acute Current Visit: Yes (16) Hypokalemia due to loss of potassium SNOMED Code(s): 57868773 ICD Code: E87.6 - HYPOKALEMIA Status: Acute Current Visit: No - Patient Summary/Data Consults: Consultations 04/10/20 11:47 Consult to Case Management/Steno Typist [CONS] Routine Consult to Diabetic Nurse Specialist [CONS] Routine Consult to Dietary [Consult to Neurophysiology Tech] [CONS] Routine 04/10/20 11:57 Consult to Physical Therapy [PT Evaluation and Treatment] [CONS] Routine Labs Pending at D/C: Wound culture Hospital Course: This is a 60-year-old female who was admitted directly from her primary care provider's office (Dr. Palencia) with a significant ulcer on her third digit of her right foot. Per the PCP, patient has not been following up as instructed and he has not seen her for approximately 1 year. On admission she was hyponatremic with a sodium of 129. Hypokalemic with a potassium of 3.1. A1c was obtained and was 10.3. CRP was 16. Creatinine was 1.6 with a GFR of 33. In reviewing prior visits patient's GFR appears to be upper 20s to low 30s chronically. Patient does admit that she has not been taking her blood sugar readings as instructed and also sometimes forgets to take her medications. She also admits she has ran out of medications and has concerns about insurance coverage. Lipid panel was obtained at [facility] prior to transfer and was quite abnormal. Patient states that she is intolerant to statins but is on other natural supplements for this. She did see our dietitian while here. WBC on admission was 13.60. She was started on Zyvox and Zosyn and this improved to 11.10 today. Absolute neutrophils improved 8.73. She was given a liter of IV fluid at 75 mils an hour. Sodium improved to 131 and creatinine remained the same at 1.6. Potassium was 3.5 and she is receiving PO supplementation for this. Magnesium today was 1.9 and this was supplemented with 2 g prior to discharge. MRI was obtained and is interpreted by our radiologist as 1. Diffuse soft tissue swelling most prominent within the third toe. 2. Diffuse edema with the distal phalanx of the third toe compatible with osteomyelitis. 3. No additional bone marrow edema is seen. 4.Other findings as noted above. Wound culture was growing abundant of cocci, probable staph aureus. Patient does have a history of MRSA was on contact precautions while here. Unfortunately do not have podiatry or orthopedic coverage currently. Therefore call was placed to [facility] and report was given to Dr. Mackenzie with podiatry who agrees patient will likely require amputation of her distal phalanx on her third toe. He is willing to see the patient in consultation and recommends she be admitted under the hospitalist service. Report is then given to Dr. Villar, hospitalist, with [facility] who agrees to transfer. Patient will be sent via ambulance for further management of her third digit right foot osteomyelitis, electrolyte abnormalities, and diabetes. - Patient Instructions Diet: Fluid Restriction, Diabetic Diet Fluid Restriction: 2000 mL Activity: As Tolerated - Discharge Plan *PRESCRIPTION DRUG MONITORING PROGRAM REVIEWED*: No *COPY OF PRESCRIPTION DRUG MONITORING REPORT IN PATIENT JONATAN: No Home Medications: Home Meds Docusate Sodium 100 mg PO DAILY PRN 05/10/15 [History] Insulin Degludec [Tresiba Flextouch U-100] 70 units SQ DAILY 05/10/15 [History] Levothyroxine Sodium [Synthroid] 137 mcg PO DAILY 05/10/15 [History] Potassium Chloride 20 meq PO QID 05/10/15 [History] Spironolactone [Aldactone] 50 mg PO BID 05/10/15 [History] Verapamil HCl [Verelan] 180 mg PO DAILY 05/10/15 [History] metOLazone [Metolazone] 5 mg PO ASDIRECTED 05/10/15 [History] Insulin Aspart [NovoLOG] 14 - 20 unit SUBCUT ASDIRECTED 01/09/16 [History] Colchicine 0.6 mg PO DAILY 02/22/16 [History] Allopurinol [Zyloprim] 200 mg PO DAILY 02/23/16 [History] Ondansetron [Zofran ODT] 4 mg PO Q8HR PRN #7 tab.dis 05/11/19 [Rx] Allopurinol [Zyloprim] 300 mg PO DAILY 04/10/20 [History] Cinnamon Bark [Cinnamon] 500 mg PO DAILY 04/10/20 [History] Diclofenac Sodium [Voltaren] 1 - 2 gram TOP BID 04/10/20 [History] Furosemide 20 mg PO BID 04/10/20 [History] Furosemide [Lasix] 80 mg PO BIDDIURETIC 04/10/20 [History] diphenhydrAMINE HCL [Benadryl Allergy] 25 mg PO Q4HR PRN 04/10/20 [History] Oxygen Therapy Mode: Room Air Patient Handouts: Insulin Storage and Care, Diabetes Mellitus and Foot Care, Cellulitis, Adult, Diabetes Mellitus and Sick Day Management, Sepsis, Diagnosis, Adult, Correction Insulin Referrals: Ramin Palencia MD [Primary Care Provider] - - Discharge Summary/Plan Comment DC Time >30 min.: Yes (60 minutes ) - General Info Date of Service: 04/11/20 Admission Dx/Problem (Free Text: Admission Diagnosis/Problem Admission Diagnosis/Problem Foot infection Functional Status: Reports: Pain Controlled, Tolerating Diet, Ambulating, Urinating. Denies: New Symptoms - Review of Systems General: Reports: No Symptoms. Denies: Fever, Weakness, Fatigue, Malaise, Chills HEENT: Reports: No Symptoms. Denies: Headaches, Sinus Congestion Pulmonary: Reports: No Symptoms. Denies: Shortness of Breath, Cough, Sputum, Wheezing Cardiovascular: Reports: No Symptoms. Denies: Chest Pain, Palpitations, Dyspnea on Exertion, Edema Gastrointestinal: Reports: No Symptoms. Denies: Abdominal Pain, Constipation, Nausea, Vomiting Genitourinary: Reports: No Symptoms. Denies: Pain Musculoskeletal: Reports: Foot Pain (Right ) Skin: Reports: No Symptoms. Denies: Cyanosis Neurological: Reports: No Symptoms. Denies: Confusion, Difficulty Walking, Gait Disturbance Psychiatric: Reports: No Symptoms - Patient Data Vitals - Most Recent: Last Vital Signs Temp 97.5 F 04/11/20 07:53 Pulse 77 04/11/20 07:53 Resp 16 04/11/20 07:53 BP 124/62 04/11/20 07:53 Pulse Ox 95 04/11/20 07:53 Weight - Most Recent: 217 lb 12.8 oz I&O - Last 24 hours: Intake & Output 04/10/20 04/11/20 04/11/20 22:59 06:59 14:59 Intake Total 800 1750 Output Total 400 950 Balance 400 800 Lab Results - Last 24 hrs: Laboratory Results - last 24 hr 04/10/20 04/10/20 04/10/20 Range/Units 12:15 12:15 12:15 WBC 13.60 H (3.98-10.04) K/mm3 RBC 4.28 (3.98-5.22) M/mm3 Hgb 13.4 D (11.2-15.7) gm/dl Hct 39.9 (34.1-44.9) % MCV 93.2 D (79.4-94.8) fl MCH 31.3 (25.6-32.2) pg MCHC 33.6 (32.2-35.5) g/dl RDW Std Deviation 44.7 (36.4-46.3) fL Plt Count 266 D (182-369) K/mm3 MPV 10.5 (9.4-12.3) fl Neut % (Auto) 79.8 H (34.0-71.1) % Lymph % (Auto) 10.9 L (19.3-51.7) % Kidder % (Auto) 7.7 (4.7-12.5) % Eos % (Auto) 1.0 (0.7-5.8) Baso % (Auto) 0.1 (0.1-1.2) % Neut # (Auto) 10.84 H (1.56-6.13) K/mm3 Lymph # (Auto) 1.48 (1.18-3.74) K/mm3 Kidder # (Auto) 1.05 H (0.24-0.36) K/mm3 Eos # (Auto) 0.14 (0.04-0.36) K/mm3 Baso # (Auto) 0.02 (0.01-0.08) K/mm3 Manual Slide Review Normal smear ESR 83 H (0-20) mm/hr Sodium (136-145) mEq/L Potassium (3.5-5.1) mEq/L Chloride (98-107) mEq/L Carbon Dioxide (21-32) mEq/L Anion Gap (5-15) BUN (7-18) mg/dL Creatinine (0.55-1.02) mg/dL Est Cr Clr Drug Dosing mL/min Estimated GFR (MDRD) (>60) mL/min BUN/Creatinine Ratio (14-18) Glucose (80-115) mg/dL POC Glucose (80-115) mg/dL Hemoglobin A1c (4.50-6.20) % Uric Acid (2.6-6.0) mg/dL Calcium (8.5-10.1) mg/dL Magnesium 2.1 (1.8-2.4) mg/dl Total Bilirubin (0.2-1.0) mg/dL AST (15-37) U/L ALT (14-59) U/L Alkaline Phosphatase (46-116) U/L C-Reactive Protein 16.0 H* (<1.0) mg/dL Total Protein (6.4-8.2) g/dl Albumin (3.4-5.0) g/dl Globulin gm/dL Albumin/Globulin Ratio (1-2) TSH 3rd Generation 3.198 (0.358-3.74) uIU/mL SARS-CoV-2 RNA (WENDI) (NEGATIVE) 04/10/20 04/10/20 04/10/20 Range/Units 12:15 12:15 12:15 WBC (3.98-10.04) K/mm3 RBC (3.98-5.22) M/mm3 Hgb (11.2-15.7) gm/dl Hct (34.1-44.9) % MCV (79.4-94.8) fl MCH (25.6-32.2) pg MCHC (32.2-35.5) g/dl RDW Std Deviation (36.4-46.3) fL Plt Count (182-369) K/mm3 MPV (9.4-12.3) fl Neut % (Auto) (34.0-71.1) % Lymph % (Auto) (19.3-51.7) % Kidder % (Auto) (4.7-12.5) % Eos % (Auto) (0.7-5.8) Baso % (Auto) (0.1-1.2) % Neut # (Auto) (1.56-6.13) K/mm3 Lymph # (Auto) (1.18-3.74) K/mm3 Kidder # (Auto) (0.24-0.36) K/mm3 Eos # (Auto) (0.04-0.36) K/mm3 Baso # (Auto) (0.01-0.08) K/mm3 Manual Slide Review ESR (0-20) mm/hr Sodium 129 L (136-145) mEq/L Potassium 3.1 L (3.5-5.1) mEq/L Chloride 89 L (98-107) mEq/L Carbon Dioxide 32 (21-32) mEq/L Anion Gap 11.1 (5-15) BUN 53 H D (7-18) mg/dL Creatinine 1.6 H (0.55-1.02) mg/dL Est Cr Clr Drug Dosing 30.16 mL/min Estimated GFR (MDRD) 33 (>60) mL/min BUN/Creatinine Ratio 33.1 H (14-18) Glucose 220 H (80-115) mg/dL POC Glucose (80-115) mg/dL Hemoglobin A1c 10.30 H (4.50-6.20) % Uric Acid 5.4 (2.6-6.0) mg/dL Calcium 9.8 (8.5-10.1) mg/dL Magnesium (1.8-2.4) mg/dl Total Bilirubin 0.5 (0.2-1.0) mg/dL AST 28 (15-37) U/L ALT 42 (14-59) U/L Alkaline Phosphatase 129 H (46-116) U/L C-Reactive Protein (<1.0) mg/dL Total Protein 7.5 (6.4-8.2) g/dl Albumin 3.1 L (3.4-5.0) g/dl Globulin 4.4 gm/dL Albumin/Globulin Ratio 0.7 L (1-2) TSH 3rd Generation (0.358-3.74) uIU/mL SARS-CoV-2 RNA (WENDI) (NEGATIVE) 04/10/20 04/10/20 04/10/20 Range/Units 13:21 18:16 21:56 WBC (3.98-10.04) K/mm3 RBC (3.98-5.22) M/mm3 Hgb (11.2-15.7) gm/dl Hct (34.1-44.9) % MCV (79.4-94.8) fl MCH (25.6-32.2) pg MCHC (32.2-35.5) g/dl RDW Std Deviation (36.4-46.3) fL Plt Count (182-369) K/mm3 MPV (9.4-12.3) fl Neut % (Auto) (34.0-71.1) % Lymph % (Auto) (19.3-51.7) % Kidder % (Auto) (4.7-12.5) % Eos % (Auto) (0.7-5.8) Baso % (Auto) (0.1-1.2) % Neut # (Auto) (1.56-6.13) K/mm3 Lymph # (Auto) (1.18-3.74) K/mm3 Kidder # (Auto) (0.24-0.36) K/mm3 Eos # (Auto) (0.04-0.36) K/mm3 Baso # (Auto) (0.01-0.08) K/mm3 Manual Slide Review ESR (0-20) mm/hr Sodium (136-145) mEq/L Potassium (3.5-5.1) mEq/L Chloride (98-107) mEq/L Carbon Dioxide (21-32) mEq/L Anion Gap (5-15) BUN (7-18) mg/dL Creatinine (0.55-1.02) mg/dL Est Cr Clr Drug Dosing mL/min Estimated GFR (MDRD) (>60) mL/min BUN/Creatinine Ratio (14-18) Glucose (80-115) mg/dL POC Glucose 356 H 320 H (80-115) mg/dL Hemoglobin A1c (4.50-6.20) % Uric Acid (2.6-6.0) mg/dL Calcium (8.5-10.1) mg/dL Magnesium (1.8-2.4) mg/dl Total Bilirubin (0.2-1.0) mg/dL AST (15-37) U/L ALT (14-59) U/L Alkaline Phosphatase (46-116) U/L C-Reactive Protein (<1.0) mg/dL Total Protein (6.4-8.2) g/dl Albumin (3.4-5.0) g/dl Globulin gm/dL Albumin/Globulin Ratio (1-2) TSH 3rd Generation (0.358-3.74) uIU/mL SARS-CoV-2 RNA (WENDI) Negative (NEGATIVE) 04/11/20 04/11/20 04/11/20 Range/Units 06:40 07:52 07:52 WBC 11.10 H (3.98-10.04) K/mm3 RBC 4.00 (3.98-5.22) M/mm3 Hgb 12.4 (11.2-15.7) gm/dl Hct 37.7 (34.1-44.9) % MCV 94.3 (79.4-94.8) fl MCH 31.0 (25.6-32.2) pg MCHC 32.9 (32.2-35.5) g/dl RDW Std Deviation 44.5 (36.4-46.3) fL Plt Count 252 (182-369) K/mm3 MPV 10.7 (9.4-12.3) fl Neut % (Auto) 78.6 H (34.0-71.1) % Lymph % (Auto) 10.2 L (19.3-51.7) % Kidder % (Auto) 8.8 (4.7-12.5) % Eos % (Auto) 1.7 (0.7-5.8) Baso % (Auto) 0.3 (0.1-1.2) % Neut # (Auto) 8.73 H (1.56-6.13) K/mm3 Lymph # (Auto) 1.13 L (1.18-3.74) K/mm3 Kidder # (Auto) 0.98 H (0.24-0.36) K/mm3 Eos # (Auto) 0.19 (0.04-0.36) K/mm3 Baso # (Auto) 0.03 (0.01-0.08) K/mm3 Manual Slide Review ESR (0-20) mm/hr Sodium 131 L (136-145) mEq/L Potassium 3.5 (3.5-5.1) mEq/L Chloride 94 L (98-107) mEq/L Carbon Dioxide 30 (21-32) mEq/L Anion Gap 10.5 (5-15) BUN 46 H (7-18) mg/dL Creatinine 1.6 H (0.55-1.02) mg/dL Est Cr Clr Drug Dosing 30.16 mL/min Estimated GFR (MDRD) 33 (>60) mL/min BUN/Creatinine Ratio 28.8 H (14-18) Glucose 250 H (80-115) mg/dL POC Glucose 264 H (80-115) mg/dL Hemoglobin A1c (4.50-6.20) % Uric Acid (2.6-6.0) mg/dL Calcium 9.5 (8.5-10.1) mg/dL Magnesium 1.9 (1.8-2.4) mg/dl Total Bilirubin (0.2-1.0) mg/dL AST (15-37) U/L ALT (14-59) U/L Alkaline Phosphatase (46-116) U/L C-Reactive Protein (<1.0) mg/dL Total Protein (6.4-8.2) g/dl Albumin (3.4-5.0) g/dl Globulin gm/dL Albumin/Globulin Ratio (1-2) TSH 3rd Generation (0.358-3.74) uIU/mL SARS-CoV-2 RNA (WENDI) (NEGATIVE) EZRA Results - Last 24 hrs: Microbiology 04/10/20 12:00 Wound Culture - Preliminary Foot, Right Gram Positive Cocci Med Orders - Current: Current Medications Acetaminophen (Tylenol) 650 mg PO Q4H PRN PRN Reason: Pain (Mild 1-3)/fever Last Admin: 04/10/20 21:00 Dose: 650 mg Documented by: Hydrocodone Bitart/Acetaminophen ([place] 325-5 Mg) 1 tab PO Q4H PRN PRN Reason: Pain (moderate 4-6) Allopurinol (Zyloprim) 200 mg PO DAILY [facility] Last Admin: 04/11/20 08:41 Dose: 200 mg Documented by: Allopurinol (Zyloprim) 300 mg PO 1200 COREEN Colchicine (Colcrys) 0.6 mg PO DAILY [facility] Last Admin: 04/11/20 08:41 Dose: 0.6 mg Documented by: Diclofenac Sodium (Voltaren 1% Gel) 1 - 2 gm TOP BID [facility] Last Admin: 04/10/20 22:05 Dose: Not Given Documented by: Docusate Sodium (Colace) 100 mg PO DAILY PRN PRN Reason: Constipation Furosemide (Lasix) 80 mg PO BIDDIURETIC [facility] Last Admin: 04/11/20 05:46 Dose: 80 mg Documented by: Heparin Sodium (Porcine) (Heparin Sodium) 5,000 units SUBCUT Q8H [facility] Last Admin: 04/11/20 08:38 Dose: 5,000 units Documented by: Linezolid 600 mg/ Premix 300 mls @ 300 mls/hr IV Q12H [facility] Last Admin: 04/11/20 01:50 Dose: 300 mls/hr Documented by: Piperacillin Sod/Tazobactam (Sod 4.5 gm/ Sodium Chloride) 100 mls @ 25 mls/hr IV Q8H [facility] Last Admin: 04/11/20 05:47 Dose: 25 mls/hr Documented by: Magnesium Sulfate (Magnesium Sulfate In Water Premix) 2 gm in 50 mls @ 25 mls/hr IV ONETIME ONE Stop: 04/11/20 10:52 Insulin Glargine (Lantus) 70 unit SUBCUT DAILY [facility] Insulin Human Lispro (Humalog) 0 unit SUBCUT QIDACANDBED [facility]; Protocol Last Admin: 04/10/20 22:05 Dose: 8 units Documented by: Levothyroxine Sodium (Levothyroxine) 112 mcg PO ACBREAKFAST [facility] Last Admin: 04/11/20 05:47 Dose: 112 mcg Documented by: Levothyroxine Sodium (Levothyroxine) 25 mcg PO ACBREAKFAST [facility] Last Admin: 04/11/20 05:47 Dose: 25 mcg Documented by: Morphine Sulfate (Morphine) 2 mg IVPUSH Q2H PRN PRN Reason: Breakthrough Pain Ondansetron HCl (Zofran) 4 mg IV Q6H PRN PRN Reason: Nausea/Vomiting Sodium Chloride (Saline Flush) 10 ml FLUSH ASDIRECTED PRN PRN Reason: Keep Vein Open Spironolactone (Aldactone) 50 mg PO BID [facility] Last Admin: 04/11/20 08:42 Dose: 50 mg Documented by: Verapamil HCl (Calan Sr) 180 mg PO DAILY [facility] Last Admin: 04/11/20 08:40 Dose: 180 mg Documented by: Discontinued Medications Heparin Sodium (Porcine) (Heparin Sodium) 5,000 units SUBCUT Q8H [facility] Last Admin: 04/10/20 14:51 Dose: 5,000 units Documented by: Meropenem/Sodium Chloride 500 (mg/ Premix) 50 mls @ 100 mls/hr IV Q8H [facility] Lactated Ringer's (Ringers, Lactated) 1,000 mls @ 75 mls/hr IV ASDIRECTED [facility] Stop: 04/11/20 01:34 Last Admin: 04/10/20 18:18 Dose: 75 mls/hr Documented by: Piperacillin Sod/Tazobactam (Sod 4.5 gm/ Sodium Chloride) 100 mls @ 200 mls/hr IV ONETIME ONE Stop: 04/10/20 14:29 Last Admin: 04/10/20 15:05 Dose: 200 mls/hr Documented by: Influenza Virus Vaccine (Fluzone Quad [id number] Syringe) 60 mcg IM .ONCE ONE Stop: 04/10/20 11:31 Potassium Chloride (Klor-Con M20) 40 meq PO BID [facility] Stop: 04/11/20 09:01 Last Admin: 04/11/20 08:40 Dose: 40 meq Documented by: Vancomycin HCl (Pharmacy To Dose - Vancomycin) 1 dose .XX ASDIRECTED [facility] - Exam Quality Assessment: Reports: DVT Prophylaxis, Skin Breakdown. Denies: Supplemental Oxygen General: Reports: Alert, Oriented, Cooperative, No Acute Distress HEENT: Reports: Pupils Equal, Pupils Reactive, Mucous Membr. Moist/[place] Neck: Reports: Supple, Trachea Midline Lungs: Reports: Clear to Auscultation, Normal Respiratory Effort Cardiovascular: Reports: Regular Rate, Regular Rhythm GI/Abdominal Exam: Normal Bowel Sounds, Soft, Non-Tender, No Organomegaly (Female) Exam: Deferred Rectal (Female) Exam: Deferred Extremities: Pedal Edema (Bilateral 3-4+ - chronic ), Leg Pain (right foot ), Limited Range of Motion (2/2 pain ), Redness (dorsal aspect of right foot. ), Other (Scaling to bilateral lower extremities. Bilateral lower extremity discoloration consistent with PVD. Ulceration on 3rd digit of right foot. ). No: Normal Inspection, Increased Warmth (improving but still warm ) Skin: Reports: Warm, Dry, Intact Wound/Incisions: Reports: Drainage, Erythema, Other (Sluffing of skin on 3rd digit with large ulceration on ventral aspect. Bandage in place on right foot. ) Neurological: Reports: No New Focal Deficit Psy/Mental Status: Reports: Alert, Normal Affect
[2020-04-11] MEDS: Diclofenac Sodium 1% Gel 100 GM Tube TOP SCH (09:56)
[2020-04-11] MEDS ORDERED: Allopurinol 300 MG Tab PO SCH (12:00)
== END 2020-04-11 10:40 | DRG 540 ==
LOC: JD.MS 10:56
PROVIDERS: ADMIT Family Medicine; ATTEND Family Medicine
DX: M86.8X7 Other osteomyelitis, ankle and foot (principal); L03.115 Cellulitis of right lower limb; E87.1 Hypo-osmolality and hyponatremia; I87.2 Venous insufficiency (chronic) (peripheral); Z66 Do not resuscitate; M79.7 Fibromyalgia; R63.4 Abnormal weight loss; I89.0 Lymphedema, not elsewhere classified; E11.65 Type 2 diabetes mellitus with hyperglycemia; E78.5 Hyperlipidemia, unspecified; E03.9 Hypothyroidism, unspecified; E66.01 Morbid (severe) obesity due to excess calories; E11.22 Type 2 diabetes mellitus with diabetic chronic kidney disease; N18.30 Chronic kidney disease, stage 3 unspecified; E11.621 Type 2 diabetes mellitus with foot ulcer; L97.519 Non-pressure chronic ulcer of other part of right foot with unspecified severity; E87.6 Hypokalemia; H54.7 Unspecified visual loss; E78.00 Pure hypercholesterolemia, unspecified; I12.9 Hypertensive chronic kidney disease with stage 1 through stage 4 chronic kidney disease, or unspecified chronic kidney disease; I73.9 Peripheral vascular disease, unspecified; K59.09 Other constipation; R33.9 Retention of urine, unspecified; M19.90 Unspecified osteoarthritis, unspecified site; M10.9 Gout, unspecified; B35.3 Tinea pedis; Z20.822 Contact with and (suspected) exposure to COVID-19; E11.51 Type 2 diabetes mellitus with diabetic peripheral angiopathy without gangrene; Z79.4 Long term (current) use of insulin; Z90.89 Acquired absence of other organs; Z90.12 Acquired absence of left breast and nipple; Z91.19 Patient's noncompliance with other medical treatment and regimen; Z79.899 Other long term (current) drug therapy; Z86.14 Personal history of Methicillin resistant Staphylococcus aureus infection; Z79.890 Hormone replacement therapy; Z88.1 Allergy status to other antibiotic agents; Z91.040 Latex allergy status; Z88.8 Allergy status to other drugs, medicaments and biological substances
CPT/HCPCS: 36415; 73718-26-RT; 73718-RT; 80048; 80053; 82962; 83036; 83735; 84145; 84443; 84550; 85025; 85652; 86140; 87040; 87070; 87077; 87186; A9270-GY; J1644; J1815-GY; J2020; J2543; J3475; J7050; J7120; U0002

== ENCOUNTER 2020-06-03 20:07 | Emergency (ER) | payer OTHER ==
[2020-06-03 20:24] VITALS: BP 130/68; PULSE 76
[2020-06-03] MEDS ORDERED: Acetaminophen 325 MG Tab PO ONE (20:41)
--- NOTE | 2020-06-03 20:51 | EDM.PDOC ---
ED HPI GENERAL MEDICAL PROBLEM - General Chief Complaint: General Stated Complaint: SYNCOPE Time Seen by Provider: 06/03/20 20:18 Source of Information: Reports: Patient, Family (), RN Notes Reviewed - History of Present Illness INITIAL COMMENTS - FREE TEXT/NARRATIVE: 60 yr old female has had multiple falls in the last 8 days. Her worst was 7 days ago falling backwards landing on her tail bone, also hitting the back of her head. She fell again 4 days ago going down a step bruising her L knee. Tail bone and low back is her main discomfort and continues to make hit hard for her to move around. No chest pain or difficulty breathing. No recent vomiting or diarrhea. 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 Buttock Pain Score (Numeric/FACES): 10 - Related Data Allergies Allergy/AdvReac Type Severity Reaction Status Date / Time Cephalosporins Allergy Hives Verified 06/03/20 20:24 ciprofloxacin [From Cipro] Allergy Cannot Verified 06/03/20 20:24 Remember fluconazole [From Diflucan] Allergy Hives Verified 06/03/20 20:24 gabapentin Allergy Cannot Verified 06/03/20 20:24 Remember latex Allergy Rash Verified 06/03/20 20:24 Home Meds: Home Meds Docusate Sodium 100 mg PO DAILY PRN 05/10/15 [History] Insulin Degludec [Tresiba Flextouch U-100] 70 units SQ DAILY 05/10/15 [History] Levothyroxine Sodium [Synthroid] 137 mcg PO DAILY 05/10/15 [History] Potassium Chloride 20 meq PO QID 05/10/15 [History] Spironolactone [Aldactone] 50 mg PO BID 05/10/15 [History] Verapamil HCl [Verelan] 180 mg PO DAILY 05/10/15 [History] metOLazone [Metolazone] 5 mg PO ASDIRECTED 05/10/15 [History] Insulin Aspart [NovoLOG] 14 - 20 unit SUBCUT ASDIRECTED 01/09/16 [History] Colchicine 0.6 mg PO DAILY 02/22/16 [History] Allopurinol [Zyloprim] 200 mg PO DAILY 02/23/16 [History] Ondansetron [Zofran ODT] 4 mg PO Q8HR PRN #7 tab.dis 05/11/19 [Rx] Allopurinol [Zyloprim] 300 mg PO DAILY 04/10/20 [History] Cinnamon Bark [Cinnamon] 500 mg PO DAILY 04/10/20 [History] Diclofenac Sodium [Voltaren] 1 - 2 gram TOP BID 04/10/20 [History] Furosemide 20 mg PO BID 04/10/20 [History] Furosemide [Lasix] 80 mg PO BIDDIURETIC 04/10/20 [History] diphenhydrAMINE HCL [Benadryl Allergy] 25 mg PO Q4HR PRN 04/10/20 [History] Past Medical History HEENT History: Reports: Impaired Vision, Sinusitis Other HEENT History: wears eyeglasses, blurred vision, conjunctivitis Cardiovascular History: Reports: High Cholesterol, Hypertension, Other (See Below) Other Cardiovascular History: peripheral vascular insufficiency, hypokalemia, edema Respiratory History: Reports: Bronchitis, Recurrent Other Respiratory History: cough Gastrointestinal History: Reports: Chronic Constipation Genitourinary History: Reports: Retention, Urinary APPLICATIONS 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: , Spontaneous Musculoskeletal History: Reports: Arthritis, Gout, Other (See Below) Other Musculoskeletal History: Carpal tunnel Neurological History: Reports: Migraines Psychiatric History: Reports: None Endocrine/Metabolic History: Reports: Diabetes, Type II, Hypothyroidism, IDDM, Obesity/BMI 30+ Hematologic History: Reports: Anemia Oncologic (Cancer) History: Reports: Breast Dermatologic History: Reports: Chronic Cellulitis, Eczema, Other (See Below) Other Dermatologic History: dermatophytosis of foot, rash, cellulitis - Infectious Disease History Infectious Disease History: Reports: Chicken Pox, Influenza, Measles - Past Surgical History HEENT Surgical History: Reports: Tonsillectomy Cardiovascular Surgical History: Reports: None Respiratory Surgical History: Reports: None GI Surgical History: Reports: Colonoscopy Female Surgical History: Reports: D&C, Mastectomy Other Female Surgeries/Procedures: L mastectomy Endocrine Surgical History: Reports: None Neurological Surgical History: Reports: None Musculoskeletal Surgical History: Reports: Other (See Below) Other Musculoskeletal Surgeries/Procedures:: right pinky toe amputation Oncologic Surgical History: Reports: Mastectomy Other Oncologic Surgeries/Procedures: mastectomy in 2002 Social & Family History - Family History Family Medical History: No Pertinent Family History Cardiac: Reports: High Cholesterol, Hypertension OBGYN: Reports: Musculoskeletal: Reports: RA Neurological: Reports: CVA Endocrine/Metabolic: Reports: Diabetes, type II Dermatologic: Reports: Eczema, Seborrheic Dermatitis Oncologic: Reports: Breast, Colon, Prostate - Tobacco Use Tobacco Use Status *Q: Never Tobacco User Second Hand Smoke Exposure: No - Caffeine Use Caffeine Use: Reports: None Caffeine Use Comment: "occassionally" - Recreational Drug Use Recreational Drug Use: No - Living Situation & Occupation Living situation: Reports: Occupation: Disabled ED ROS GENERAL - Review of Systems Review Of Systems: See Below Constitutional: Denies: Fever, Chills HEENT: Reports: No Symptoms Respiratory: Denies: Shortness of Breath Cardiovascular: Denies: Chest Pain Endocrine: Reports: Fatigue GI/Abdominal: Denies: Abdominal Pain, Nausea, Vomiting Musculoskeletal: Reports: Back Pain Skin: Denies: Bruising Neurological: Reports: Dizziness, Numbness (bilat feet chronically). Denies: Trouble Speaking ED EXAM, GENERAL - Physical Exam Exam: See Below General Appearance: Alert, No Apparent Distress Throat/Mouth: Normal Inspection Head: Atraumatic. No: Facial Swelling Neck: Supple, Non-Tender Respiratory/Chest: No Respiratory Distress, Lungs Clear, Normal Breath Sounds Cardiovascular: Regular Rate, Rhythm GI/Abdominal: Soft, Non-Tender. No: Guarding Back Exam: Paraspinal Tenderness, Vertebral Tenderness (low mid back and ta ilbone) Neurological: Alert, Oriented, Other (no focal weakness) Skin Exam: Warm, Dry, Intact Course - Vital Signs Last Recorded V/S: Last Vital Signs Temp 98.1 F 06/03/20 20:17 Pulse 76 06/03/20 20:17 Resp 18 06/03/20 20:17 BP 130/68 06/03/20 20:17 Pulse Ox 100 06/03/20 20:17 - Orders/Labs/Meds Orders: Active Orders 24 hr Category Date Time Status Head wo Cont [CT] Stat Exams 06/03/20 20:53 Taken Lumbar Spine 2 or 3V [CR] Stat Exams 06/03/20 20:42 Taken Sacrum Coccyx Min 2V [CR] Stat Exams 06/03/20 20:42 Taken Labs: Laboratory Tests 06/03/20 06/03/20 Range/Units 20:56 20:56 WBC 11.88 H (3.98-10.04) K/mm3 RBC 4.12 (3.98-5.22) M/mm3 Hgb 12.8 (11.2-15.7) gm/dl Hct 37.5 (34.1-44.9) % MCV 91.0 D (79.4-94.8) fl MCH 31.1 (25.6-32.2) pg MCHC 34.1 (32.2-35.5) g/dl RDW Std Deviation 44.2 (36.4-46.3) fL Plt Count 242 (182-369) K/mm3 MPV 10.6 (9.4-12.3) fl Neut % (Auto) 78.0 H (34.0-71.1) % Lymph % (Auto) 12.5 L (19.3-51.7) % [place] % (Auto) 5.3 (4.7-12.5) % Eos % (Auto) 2.9 (0.7-5.8) Baso % (Auto) 0.4 (0.1-1.2) % Neut # (Auto) 9.26 H (1.56-6.13) K/mm3 Lymph # (Auto) 1.48 (1.18-3.74) K/mm3 [place] # (Auto) 0.63 H (0.24-0.36) K/mm3 Eos # (Auto) 0.35 (0.04-0.36) K/mm3 Baso # (Auto) 0.05 (0.01-0.08) K/mm3 Manual Slide Review Normal smear Sodium 126 L (136-145) mEq/L Potassium 4.4 (3.5-5.1) mEq/L Chloride 88 L (98-107) mEq/L Carbon Dioxide 32 (21-32) mEq/L Anion Gap 10.4 (5-15) BUN 31 H (7-18) mg/dL Creatinine 1.4 H (0.55-1.02) mg/dL Est Cr Clr Drug Dosing 32.95 mL/min Estimated GFR (MDRD) 38 (>60) mL/min BUN/Creatinine Ratio 22.1 H (14-18) Glucose 166 H (80-115) mg/dL Calcium 9.2 (8.5-10.1) mg/dL Total Bilirubin 0.2 (0.2-1.0) mg/dL AST 15 (15-37) U/L ALT 27 (14-59) U/L Alkaline Phosphatase 127 H (46-116) U/L Total Protein 6.3 L (6.4-8.2) g/dl Albumin 3.2 L (3.4-5.0) g/dl Globulin 3.1 gm/dL Albumin/Globulin Ratio 1.0 (1-2) Meds: Medications Discontinued Medications Generic Name Dose Route Start Last Admin Trade Name Carmelita PRN Reason Stop Dose Admin Acetaminophen 975 mg 06/03/20 20:41 06/03/20 21:24 Tylenol PO 06/03/20 20:42 975 mg NOW ONE Administration - Re-Assessments/Exams Free Text/Narrative Re-Assessment/Exam: 06/03/20 23:08 X rays no fx, head CT looks fine. Her sodium did come back low at 126. Discharge instr. as documented. Departure - Departure Time of Disposition: 22:04 Disposition: Home, Self-Care 01 Condition: Fair Clinical Impression: Generalized weakness, Hyponatremia Fall Qualifiers: Encounter type: initial encounter Qualified Code(s): W19.XXXA - Unspecified fall, initial encounter Contusion of coccyx Qualifiers: Encounter type: initial encounter Qualified Code(s): S30.0XXA - Contusion of lower back and pelvis, initial encounter - Discharge Information Instructions: Fall Prevention in the Home, Adult Referrals: Ramin Palencia MD [Primary Care Provider] - Forms: ED Department Discharge Additional Instructions: Your Xrays and Head CT look good. Your sodium is low at 126. That will make you more weak, dizzy and off balance. Stop your spironolactone for now. Take your other medications as prescribed. See Dr Palencia tomorrow as planned for further guidance. Sepsis Event Note (ED) - Evaluation Sepsis Screening Result: No Definite Risk - Focused Exam Vital Signs: Vital Signs Temp Pulse Resp BP Pulse Ox 06/03/20 20:17 98.1 F 76 18 130/68 100 - My Orders Last 24 Hours: My Active Orders 06/03/20 20:42 Lumbar Spine 2 or 3V [CR] Stat Sacrum Coccyx Min 2V [CR] Stat 06/03/20 20:53 Head wo Cont [CT] Stat - Assessment/Plan Last 24 Hours: My Active Orders 06/03/20 20:42 Lumbar Spine 2 or 3V [CR] Stat Sacrum Coccyx Min 2V [CR] Stat 06/03/20 20:53 Head wo Cont [CT] Stat
--- NOTE | 2020-06-04 07:43 | CT ---
Head CT Technique: Multiple axial sections through the brain were obtained. Intravenous contrast was not utilized. Reconstructed coronal and sagittal images were obtained. Comparison: No prior intracranial imaging is available. Findings: Ventricles along with basal cisterns and sulci over the convexities are mildly prominent. Focal area of atrophy is seen within the left parietal convexity which is old. No abnormal parenchymal densities are seen. No evidence of intracranial hemorrhage. No midline shift or mass-effect is appreciated. Bone window settings were reviewed. Visualized mastoid sinuses and visualized paranasal sinuses show nothing acute. No acute calvarial abnormality is appreciated. Impression: 1. Slight senescent change as noted above. 2. Nothing acute is appreciated on noncontrast head CT exam. Diagnostic code #2
--- NOTE | 2020-06-04 07:45 | CR ---
Lumbar spine: AP and lateral views of the lumbar spine were obtained. Comparison: No prior lumbar spine imaging is available. Vertebral body heights are maintained. Disc spaces are fairly well maintained. Minimal scattered endplate osteophytes are seen. Pedicles are intact. Minimal scoliosis is noted. Visualized transverse and spinous processes are intact. No acute fracture or subluxation is seen. Slight vascular calcification is noted. Ingested tablets are seen within the upper abdomen. Impression: 1. Minimal degenerative change. 2. Nothing acute is seen. Diagnostic code #2
--- NOTE | 2020-06-04 07:46 | CR ---
Sacrum and coccyx: 3 views of the sacrum and coccyx were obtained. This study shows minimal disc space narrowing at the lumbosacral junction. Sacrum is intact. Minimal deformity is noted within the distal sacrum believed to be chronic. No acute fracture or other abnormality is appreciated. Sacroiliac joints appear within normal limits. Impression: 1. This study shows very slight disc space narrowing at the lumbosacral junction. This may be a transitional segment. 2. Nothing acute is appreciated on three-view sacrum and coccyx study. Diagnostic code #2
== END 2020-06-03 22:20 | disposition home or self-care (01) ==
LOC: JD.ED 20:07
DX: S30.0XXA Contusion of lower back and pelvis, initial encounter (principal); E87.1 Hypo-osmolality and hyponatremia; I10 Essential (primary) hypertension; M10.9 Gout, unspecified; E03.9 Hypothyroidism, unspecified; E11.51 Type 2 diabetes mellitus with diabetic peripheral angiopathy without gangrene; E66.9 Obesity, unspecified; Z68.39 Body mass index [BMI] 39.0-39.9, adult; Z88.1 Allergy status to other antibiotic agents; Z88.8 Allergy status to other drugs, medicaments and biological substances; Z91.040 Latex allergy status; Z79.4 Long term (current) use of insulin; Z79.899 Other long term (current) drug therapy; W19.XXXA Unspecified fall, initial encounter
CPT/HCPCS: 36415; 70450; 72100; 72220; 80053; 85025; 99284; A9270; 99283

== ENCOUNTER 2024-05-13 14:21 | Inpatient (IN) | payer MEDICARE, OTHER ==
[2024-05-13 15:38] LABS: BASOPHILS ABSOLUTE AUTO 0.1 K/mm3 (0.0-0.2); BASOPHILS PERCENT AUTO 0.5 % (0.0-1.0); EOSINOPHILS ABSOLUTE AUTO 0.2 K/mm3 (0.0-0.4); EOSINOPHILS PERCENT AUTO 2.3 % (0.0-6.0); HEMATOCRIT 48.4 % (37.0-47.0); HEMOGLOBIN 14.4 gm/dl (12.0-16.0); IMMATURE GRAN ABSOLUTE AUTO 0.05 K/mm3 (0.00-0.05); IMMATURE GRAN PERCENT AUTO 0.5 % (0.0-0.4); LYMPHOCYTES ABSOLUTE AUTO 0.5 K/mm3 (1.0-4.8); LYMPHOCYTES PERCENT AUTO 4.9 % (24.0-44.0); MEAN CORPUSCULAR HEMOGLOBIN 29.1 pg (28.0-32.0); MEAN CORPUSCULAR HGB CONC 29.8 g/dl (32.0-36.0); MEAN PLATELET VOLUME 10.6 fl (9.4-12.3); MONOCYTES ABSOLUTE AUTO 0.6 K/mm3 (0.0-0.8); MONOCYTES PERCENT AUTO 5.8 % (0.0-8.0); NEUTROPHILS ABSOLUTE AUTO 8.7 K/mm3 (1.8-7.7); PLATELET COUNT,PLT 137 K/mm3 (150-400); RED BLOOD CELL COUNT 4.94 M/mm3 (4.10-5.30); WHITE BLOOD CELL COUNT,WBC 10.11 K/mm3 (3.9-11.3)
[2024-05-13 16:02] LABS: LACTIC ACID 0.8 mmol/L (0.4-2.0)
[2024-05-13 16:19] LABS: A/G RATIO 1.2 (1-2); ALANINE AMINOTRANSFERASE,ALT 15 U/L (14-59); ALBUMIN 3.6 g/dl (3.4-5.0); ALKALINE PHOSPHATASE 97 U/L (46-116); ANION GAP 12.6 (5-15); ASPARTATE AMNIOTRANSFERASE,AST 13 U/L (15-37); BILIRUBIN TOTAL 0.6 mg/dL (0.2-1.0); BLOOD UREA NITROGEN,BUN 47 mg/dL (7-18); BUN/CREATININE RATIO 36.2 (14-18); C-REACTIVE PROTEIN 0.71 mg/dL (<0.30); CALCIUM 8.8 mg/dL (8.5-10.1); CARBON DIOXIDE,CO2 25 mEq/L (21-32); CHLORIDE,CL 107 mEq/L (98-107); CREATININE 1.3 mg/dL (0.55-1.02); ESTIMATED GFR 45 mL/min (>60); GLUCOSE RANDOM 114 mg/dL (70-99); POTASSIUM,K 4.6 mEq/L (3.5-5.1); PROTEIN TOTAL,TP 6.5 g/dl (6.4-8.2); SODIUM,NA 140 mEq/L (136-145)
[2024-05-13] MEDS: Sodium Chloride 0.9% 10 ML Syringe FLUSH PRN (16:53)
[2024-05-13] MEDS: Furosemide 40 MG/4 ML VIAL IVPUSH ONE (16:53)
[2024-05-13] MEDS ORDERED: Labetalol 100 MG/20 ML MDV IVPUSH PRN (21:23)
[2024-05-13] MEDS ORDERED: hydrALAZINE 20 MG/ML SDV IVPUSH PRN (21:23)
[2024-05-13] MEDS ORDERED: Sennosides/Docusate Sodium 50-8.6 MG Tab PO PRN (21:26)
[2024-05-14 05:27] LABS: BASOPHILS PERCENT AUTO 0.3 % (0.0-1.0); EOSINOPHILS ABSOLUTE AUTO 0.3 K/mm3 (0.0-0.4); EOSINOPHILS PERCENT AUTO 3.3 % (0.0-6.0); HEMOGLOBIN 13.2 gm/dl (12.0-16.0); IMMATURE GRAN ABSOLUTE AUTO 0.03 K/mm3 (0.00-0.05); IMMATURE GRAN PERCENT AUTO 0.4 % (0.0-0.4); LYMPHOCYTES ABSOLUTE AUTO 0.4 K/mm3 (1.0-4.8); LYMPHOCYTES PERCENT AUTO 5.5 % (24.0-44.0); MEAN CORPUSCULAR HEMOGLOBIN 28.4 pg (28.0-32.0); MEAN CORPUSCULAR HGB CONC 29.3 g/dl (32.0-36.0); MEAN PLATELET VOLUME 11.3 fl (9.4-12.3); MONOCYTES ABSOLUTE AUTO 0.6 K/mm3 (0.0-0.8); MONOCYTES PERCENT AUTO 7.6 % (0.0-8.0); NEUTROPHILS ABSOLUTE AUTO 6.5 K/mm3 (1.8-7.7); NEUTROPHILS PERCENT AUTO 82.9 % (41.0-71.0); PLATELET COUNT,PLT 143 K/mm3 (150-400); RED BLOOD CELL COUNT 4.64 M/mm3 (4.10-5.30); WHITE BLOOD CELL COUNT,WBC 7.78 K/mm3 (3.9-11.3)
[2024-05-14 05:49] LABS: A/G RATIO 1.2 (1-2); ALBUMIN 3.2 g/dl (3.4-5.0); ANION GAP 8.5 (5-15); BILIRUBIN TOTAL 0.5 mg/dL (0.2-1.0); BUN/CREATININE RATIO 35.4 (14-18); CALCIUM 8.4 mg/dL (8.5-10.1); CREATININE 1.3 mg/dL (0.55-1.02); EST CRCL DRUG DOSING (CG) 33.67 mL/min; MAGNESIUM 2.2 mg/dL (1.8-2.4); PHOSPHORUS 4.4 mg/dL (2.6-4.7); POTASSIUM,K 4.5 mEq/L (3.5-5.1); PROTEIN TOTAL,TP 5.9 g/dl (6.4-8.2)
[2024-05-14 08:47] LABS: APPEARANCE,URINE CLEAR (Clear); BILIRUBIN,URINE NEGATIVE (Negative); COLOR,URINE YELLOW (Yellow); GLUCOSE,URINE NEGATIVE (Negative); KETONES,URINE NEGATIVE (Negative); LEUKOCYTE ESTERASE,URINE TRACE (Negative); NITRITE,URINE NEGATIVE (Negative); OCCULT BLOOD,URINE NEGATIVE (Negative); PH,URINE 5.5 (5.0-8.0); PROTEIN,URINE 1+ (Negative)
[2024-05-14 09:30] LABS: HEMOGLOBIN A1C 7.2 %
[2024-05-14] MEDS ORDERED: 50% Dextrose in Water 50 ML Syringe IVPUSH PRN (09:37)
[2024-05-14 09:38] LABS: TSH 1.972 uIU/mL (0.358-3.74)
[2024-05-14 10:15] LABS: RBC,URINE 0-5 /hpf (0-5); WBC,URINE 0-5 /hpf (0-5)
[2024-05-14 10:16] LABS: BACTERIA,URINE MANY /hpf (FEW); MUCUS,URINE FEW /hpf (FEW)
[2024-05-14] MEDS: Enoxaparin 40 MG/0.4 ML Syringe SUBCUT SCH (10:30)
[2024-05-14] MEDS: Furosemide 40 MG/4 ML VIAL IVPUSH ONE (10:30)
[2024-05-14] MEDS: Insulin Lispro 100 Unit/ML 3 ML KwikPen SUBCUT SCH (12:08)
[2024-05-14] MEDS ORDERED: Docusate Sodium 100 MG Cap PO PRN (19:14)
[2024-05-14] MEDS: Miconazole 2% Crm 30 GM Tube TOP SCH (21:57)
[2024-05-15 06:12] LABS: ANION GAP 11.3 (5-15); BUN/CREATININE RATIO 39.2 (14-18); CALCIUM 8.4 mg/dL (8.5-10.1); CREATININE 1.2 mg/dL (0.55-1.02); EST CRCL DRUG DOSING (CG) 36.47 mL/min; POTASSIUM,K 4.3 mEq/L (3.5-5.1)
[2024-05-15] MEDS: Levothyroxine 125 MCG Tab PO SCH (06:37)
[2024-05-15] MEDS: Levothyroxine 50 MCG Tab PO SCH (06:37)
[2024-05-15] MEDS: Pravastatin 20 MG Tab PO SCH (08:21)
[2024-05-15] MEDS: Furosemide 40 MG/4 ML VIAL IVPUSH SCH (08:33)
[2024-05-15] MEDS: LORazepam 2 MG/ML SDV IV PRN (13:25)
[2024-05-15 13:36] LABS: BASE EXCESS ARTERIAL 3.3 (-2-2.0); BICARBONATE,ARTERIAL 31.2 meq/L (22.0-26.0); O2 SATURATION ARTERIAL 80.5 % (96.0-97.0)
[2024-05-15] MEDS: Albuterol/Ipratropium 3.0-0.5 MG/3 ML Neb Soln NEB PRN (13:50)
[2024-05-15] MEDS: Furosemide 40 MG/4 ML VIAL IVPUSH ONE ×2 (14:56→20:26)
[2024-05-15] MEDS: hydrOXYzine HCl 25 MG Tab PO PRN (14:57)
[2024-05-15 15:48] LABS: BICARBONATE,ARTERIAL 31.6 meq/L (22.0-26.0)
[2024-05-16 04:36] LABS: HEMATOCRIT 43.6 % (37.0-47.0); HEMOGLOBIN 12.6 gm/dl (12.0-16.0); MEAN CORPUSCULAR HEMOGLOBIN 28.6 pg (28.0-32.0); MEAN CORPUSCULAR HGB CONC 28.9 g/dl (32.0-36.0); MEAN CORPUSCULAR VOLUME 98.9 fl (83.0-99.0); MEAN PLATELET VOLUME 11.2 fl (9.4-12.3); PLATELET COUNT,PLT 105 K/mm3 (150-400); RED BLOOD CELL COUNT 4.41 M/mm3 (4.10-5.30); WHITE BLOOD CELL COUNT,WBC 7.59 K/mm3 (3.9-11.3)
[2024-05-16 04:52] LABS: ANION GAP 6.9 (5-15); BUN/CREATININE RATIO 30.8 (14-18); CALCIUM 8.2 mg/dL (8.5-10.1); CREATININE 1.3 mg/dL (0.55-1.02); EST CRCL DRUG DOSING (CG) 33.67 mL/min; POTASSIUM,K 3.9 mEq/L (3.5-5.1)
[2024-05-16 11:07] LABS: BASE EXCESS ARTERIAL 7.8 (-2-2.0); BICARBONATE,ARTERIAL 35.3 meq/L (22.0-26.0); O2 SATURATION ARTERIAL 92.5 % (96.0-97.0)
[2024-05-16] MEDS: Furosemide 40 MG/4 ML VIAL IVPUSH SCH (13:51)
[2024-05-17] MEDS: Melatonin 3 MG Tab PO PRN (02:45)
[2024-05-17 05:01] LABS: HEMATOCRIT 44.6 % (37.0-47.0); HEMOGLOBIN 13.1 gm/dl (12.0-16.0); MEAN CORPUSCULAR HEMOGLOBIN 28.8 pg (28.0-32.0); MEAN CORPUSCULAR HGB CONC 29.4 g/dl (32.0-36.0); PLATELET COUNT,PLT 96 K/mm3 (150-400); RED BLOOD CELL COUNT 4.55 M/mm3 (4.10-5.30); WHITE BLOOD CELL COUNT,WBC 7.46 K/mm3 (3.9-11.3)
[2024-05-17 05:11] LABS: ANION GAP 7.1 (5-15); BUN/CREATININE RATIO 31.7 (14-18); CALCIUM 8.2 mg/dL (8.5-10.1); CREATININE 1.2 mg/dL (0.55-1.02); EST CRCL DRUG DOSING (CG) 36.47 mL/min; POTASSIUM,K 4.1 mEq/L (3.5-5.1)
[2024-05-18 04:46] LABS: HEMATOCRIT 43.5 % (37.0-47.0); HEMOGLOBIN 12.8 gm/dl (12.0-16.0); MEAN CORPUSCULAR HEMOGLOBIN 28.7 pg (28.0-32.0); MEAN CORPUSCULAR HGB CONC 29.4 g/dl (32.0-36.0); MEAN CORPUSCULAR VOLUME 97.5 fl (83.0-99.0); MEAN PLATELET VOLUME 11.7 fl (9.4-12.3); PLATELET COUNT,PLT 93 K/mm3 (150-400); RED BLOOD CELL COUNT 4.46 M/mm3 (4.10-5.30); WHITE BLOOD CELL COUNT,WBC 6.96 K/mm3 (3.9-11.3)
[2024-05-18 04:57] LABS: ANION GAP 8.9 (5-15); BUN/CREATININE RATIO 31.7 (14-18); CALCIUM 8.7 mg/dL (8.5-10.1); CREATININE 1.2 mg/dL (0.55-1.02); EST CRCL DRUG DOSING (CG) 36.47 mL/min; POTASSIUM,K 3.9 mEq/L (3.5-5.1)
[2024-05-18] MEDS: Acetaminophen 325 MG Tab PO PRN (16:46)
[2024-05-20] MEDS ORDERED: LORazepam 2 MG/ML SDV IVPUSH PRN (14:45)
[2024-05-20] MEDS: oxyCODONE 5 MG Tab PO PRN (18:27)
[2024-05-21 05:46] LABS: ANION GAP 2.5 (5-15); BUN/CREATININE RATIO 33.6 (14-18); CALCIUM 8.4 mg/dL (8.5-10.1); CREATININE 1.1 mg/dL (0.55-1.02); EST CRCL DRUG DOSING (CG) 39.79 mL/min; MAGNESIUM 1.8 mg/dL (1.8-2.4); PHOSPHORUS 3.2 mg/dL (2.6-4.7); POTASSIUM,K 3.5 mEq/L (3.5-5.1)
[2024-05-21] MEDS: Insulin Lispro 100 Unit/ML 3 ML KwikPen SUBCUT SCH (08:15)
[2024-05-21] MEDS: Potassium Chloride 20 MEQ Tab.ER PO ONE (15:26)
[2024-05-21] MEDS: acetaZOLAMIDE 500 MG Vial IVPUSH SCH (21:09)
[2024-05-22] MEDS ORDERED: Furosemide 80 MG Tab PO SCH (06:00)
[2024-05-22 06:11] LABS: ANION GAP 5.6 (5-15); BUN/CREATININE RATIO 32.5 (14-18); CALCIUM 8.8 mg/dL (8.5-10.1); CREATININE 1.2 mg/dL (0.55-1.02); EST CRCL DRUG DOSING (CG) 36.47 mL/min; POTASSIUM,K 3.6 mEq/L (3.5-5.1)
[2024-05-22] MEDS: Potassium Chloride 20 MEQ Tab.ER PO ONE (15:31)
[2024-05-22 19:03] LABS: BICARBONATE,ARTERIAL 41.5 meq/L (22.0-26.0)
[2024-05-22] MEDS: TRIAMCINOLONE 0.1% OINTMENT TOP SCH (20:01)
[2024-05-23 13:52] VITALS: BP 112/62; PULSE 69
== END 2024-05-23 13:42 | DRG 291 ==
LOC: JD.ED 14:21 → JD.ICU 18:10 → JD.MS 05-20 20:43
PROVIDERS: ADMIT Student in an Organized Health Care Education/Training Program; ATTEND Student in an Organized Health Care Education/Training Program
PROC: 4A133R1 Monitoring of Arterial Saturation, Peripheral, Percutaneous Approach (ICD-10-PCS; principal; 2024-05-16)
PROC: 5A09357 Assistance with Respiratory Ventilation, Less than 24 Consecutive Hours, Continuous Positive Airway Pressure (ICD-10-PCS; 2024-05-16)
DX: I13.0 Hypertensive heart and chronic kidney disease with heart failure and stage 1 through stage 4 chronic kidney disease, or unspecified chronic kidney disease (principal); I50.33 Acute on chronic diastolic (congestive) heart failure; J96.01 Acute respiratory failure with hypoxia; J96.02 Acute respiratory failure with hypercapnia; E66.2 Morbid (severe) obesity with alveolar hypoventilation; Z68.43 Body mass index [BMI] 50.0-59.9, adult; E87.4 Mixed disorder of acid-base balance; H54.7 Unspecified visual loss; E78.00 Pure hypercholesterolemia, unspecified; J32.9 Chronic sinusitis, unspecified; J40 Bronchitis, not specified as acute or chronic; E03.9 Hypothyroidism, unspecified; M19.90 Unspecified osteoarthritis, unspecified site; M10.9 Gout, unspecified; G43.909 Migraine, unspecified, not intractable, without status migrainosus; I11.0 Hypertensive heart disease with heart failure; E11.51 Type 2 diabetes mellitus with diabetic peripheral angiopathy without gangrene; R00.1 Bradycardia, unspecified; I27.20 Pulmonary hypertension, unspecified; D64.9 Anemia, unspecified; E11.22 Type 2 diabetes mellitus with diabetic chronic kidney disease; N18.31 Chronic kidney disease, stage 3a; I50.9 Heart failure, unspecified; E11.9 Type 2 diabetes mellitus without complications; Z90.49 Acquired absence of other specified parts of digestive tract; E66.9 Obesity, unspecified; Z99.3 Dependence on wheelchair; Z90.12 Acquired absence of left breast and nipple; Z85.3 Personal history of malignant neoplasm of breast; Z89.421 Acquired absence of other right toe(s); Z99.81 Dependence on supplemental oxygen; Z79.899 Other long term (current) drug therapy; Z79.4 Long term (current) use of insulin; Z79.890 Hormone replacement therapy; Z79.2 Long term (current) use of antibiotics; Z88.1 Allergy status to other antibiotic agents; Z91.040 Latex allergy status; Z88.8 Allergy status to other drugs, medicaments and biological substances
CPT/HCPCS: 36415; 70450; 71045; 80053; 83605; 83880; 85025; 86140; 87428; 93005; 96374; 99285; J1940; 36600; 80048; 80061; 81001; 82803; 82947; 83036; 83735; 84100; 84443; 85027; 87086; 93010; 93306; 94640; 94660; 94667; 94668; 94761; 94762; 97110-GP; 97116-GP; 97140-GP; 97161-GP; 97530-GP; 99284; A9270-GY; J1120; J1650; J1815; J2060; J3490; J7620-GY

== ENCOUNTER 2025-01-16 09:25 | Emergency (ER) | payer MEDICARE, MEDICAID ==
[2025-01-16] MEDS ORDERED: Sodium Chloride 0.9% 10 ML Syringe FLUSH PRN (09:48)
[2025-01-16 10:29] LABS: BASOPHILS ABSOLUTE AUTO 0.1 K/mm3 (0.0-0.2); BASOPHILS PERCENT AUTO 0.6 % (0.0-1.0); EOSINOPHILS ABSOLUTE AUTO 0.3 K/mm3 (0.0-0.4); EOSINOPHILS PERCENT AUTO 3.6 % (0.0-6.0); IMMATURE GRAN ABSOLUTE AUTO 0.05 K/mm3 (0.00-0.05); IMMATURE GRAN PERCENT AUTO 0.6 % (0.0-0.4); LYMPHOCYTES ABSOLUTE AUTO 1.1 K/mm3 (1.0-4.8); LYMPHOCYTES PERCENT AUTO 13.1 % (24.0-44.0); MEAN PLATELET VOLUME 10.3 fl (9.4-12.3); MONOCYTES ABSOLUTE AUTO 0.6 K/mm3 (0.0-0.8); MONOCYTES PERCENT AUTO 6.6 % (0.0-8.0); NEUTROPHILS ABSOLUTE AUTO 6.4 K/mm3 (1.8-7.7); NEUTROPHILS PERCENT AUTO 75.5 % (41.0-71.0); NRBC ABSOLUTE 0.00 (0.00-0.02); NRBC PERCENT 0.0 % (0.0-0.2); PLATELET COUNT,PLT 177 K/mm3 (150-400); RED BLOOD CELL COUNT 4.01 M/mm3 (4.10-5.30); WHITE BLOOD CELL COUNT,WBC 8.45 K/mm3 (3.9-11.3)
[2025-01-16 10:48] LABS: A/G RATIO 0.7 (1-2); ALANINE AMINOTRANSFERASE,ALT 21 U/L (14-59); ASPARTATE AMNIOTRANSFERASE,AST 11 U/L (15-37); BILIRUBIN TOTAL 0.3 mg/dL (0.2-1.0); BLOOD UREA NITROGEN,BUN 74 mg/dL (7-18); CARBON DIOXIDE,CO2 26 mEq/L (21-32); CHLORIDE,CL 106 mEq/L (98-107); CREATININE 2.7 mg/dL (0.55-1.02); ESTIMATED GFR 19 mL/min (>60); GLUCOSE RANDOM 212 mg/dL (70-99); POTASSIUM,K 4.5 mEq/L (3.5-5.1); PROTEIN TOTAL,TP 6.9 g/dl (6.4-8.2); SODIUM,NA 142 mEq/L (136-145)
[2025-01-16 12:41] LABS: APPEARANCE,URINE CLOUDY (Clear); GLUCOSE,URINE 2+ (Negative); OCCULT BLOOD,URINE 2+ (Negative)
[2025-01-16 14:45] VITALS: BP 119/56; PULSE 66
== END 2025-01-16 13:35 ==
LOC: JD.ED 09:25
DX: N39.0 Urinary tract infection, site not specified (principal); I13.0 Hypertensive heart and chronic kidney disease with heart failure and stage 1 through stage 4 chronic kidney disease, or unspecified chronic kidney disease; N18.9 Chronic kidney disease, unspecified; I50.9 Heart failure, unspecified; E11.22 Type 2 diabetes mellitus with diabetic chronic kidney disease; E03.9 Hypothyroidism, unspecified; Z91.040 Latex allergy status; Z79.890 Hormone replacement therapy; Z79.899 Other long term (current) drug therapy; Z88.8 Allergy status to other drugs, medicaments and biological substances
CPT/HCPCS: 36415; 51702; 74176; 74176-26; 80053; 81001; 83735; 85025; 87086; 99285; A9270-GY

== ENCOUNTER 2025-01-28 10:16 | Emergency (ER) | payer MEDICARE, MEDICAID ==
[2025-01-28 11:49] LABS: APPEARANCE,URINE TURBID (Clear)
[2025-01-28 11:51] LABS: GLUCOSE,URINE TRACE (Negative)
[2025-01-28 11:52] LABS: OCCULT BLOOD,URINE 3+ (Negative)
[2025-01-28 11:54] LABS: SQUAMOUS EPITHELIAL CELLS,UR 0-5 /hpf (0-5); YEAST BUDDING,URINE RARE (NOT SEEN)
[2025-01-28 15:42] VITALS: BP 130/60; PULSE 71
== END 2025-01-28 13:20 | disposition home or self-care (01) ==
LOC: JD.ED 10:16
DX: N30.00 Acute cystitis without hematuria (principal); I50.9 Heart failure, unspecified; E78.00 Pure hypercholesterolemia, unspecified; I10 Essential (primary) hypertension; E11.9 Type 2 diabetes mellitus without complications; E03.9 Hypothyroidism, unspecified; E66.9 Obesity, unspecified; Z88.1 Allergy status to other antibiotic agents; Z88.8 Allergy status to other drugs, medicaments and biological substances; Z91.040 Latex allergy status; Z79.890 Hormone replacement therapy; Z79.899 Other long term (current) drug therapy
CPT/HCPCS: 81001; 87086; 99283

== ENCOUNTER 2025-02-05 08:02 | Inpatient (IN) | payer MEDICARE, MEDICAID ==
[2025-02-05] MEDS ORDERED: Sodium Chloride 0.9% 10 ML Syringe FLUSH PRN (08:12)
[2025-02-05 09:00] LABS: BASOPHILS ABSOLUTE AUTO 0.1 K/mm3 (0.0-0.2); BASOPHILS PERCENT AUTO 0.4 % (0.0-1.0); EOSINOPHILS ABSOLUTE AUTO 0.2 K/mm3 (0.0-0.4); EOSINOPHILS PERCENT AUTO 1.8 % (0.0-6.0); IMMATURE GRAN ABSOLUTE AUTO 0.12 K/mm3 (0.00-0.05); IMMATURE GRAN PERCENT AUTO 1.1 % (0.0-0.4); LYMPHOCYTES ABSOLUTE AUTO 1.3 K/mm3 (1.0-4.8); LYMPHOCYTES PERCENT AUTO 11.3 % (24.0-44.0); MEAN PLATELET VOLUME 10.0 fl (9.4-12.3); MONOCYTES ABSOLUTE AUTO 0.6 K/mm3 (0.0-0.8); MONOCYTES PERCENT AUTO 5.5 % (0.0-8.0); NEUTROPHILS ABSOLUTE AUTO 9.1 K/mm3 (1.8-7.7); NEUTROPHILS PERCENT AUTO 79.9 % (41.0-71.0); NRBC ABSOLUTE 0.00 (0.00-0.02); NRBC PERCENT 0.0 % (0.0-0.2); PLATELET COUNT,PLT 174 K/mm3 (150-400); RED BLOOD CELL COUNT 4.63 M/mm3 (4.10-5.30); WHITE BLOOD CELL COUNT,WBC 11.40 K/mm3 (3.9-11.3)
[2025-02-05 09:23] LABS: INR 1.0
[2025-02-05 09:24] LABS: PTT,PARTIAL THROMBOPLSTIN TIME 27.2 SECONDS (21.7-31.4)
[2025-02-05 09:37] LABS: LACTIC ACID 0.9 mmol/L (0.4-2.0)
[2025-02-05 09:40] LABS: A/G RATIO 0.8 (1-2); ALANINE AMINOTRANSFERASE,ALT 21 U/L (14-59); ASPARTATE AMNIOTRANSFERASE,AST 14 U/L (15-37); BILIRUBIN TOTAL 0.3 mg/dL (0.2-1.0); CARBON DIOXIDE,CO2 32 mEq/L (21-32); CHLORIDE,CL 104 mEq/L (98-107); CREATINE KINASE,CK 15 U/L (26-192); CREATININE 1.8 mg/dL (0.55-1.02); ESTIMATED GFR 31 mL/min (>60); GLUCOSE RANDOM 56 mg/dL (70-99); POTASSIUM,K 3.1 mEq/L (3.5-5.1); PROTEIN TOTAL,TP 7.4 g/dl (6.4-8.2); SODIUM,NA 145 mEq/L (136-145); TROPONIN I HIGH SENSITIVITY 13 pg/mL (<=51); TSH 0.610 uIU/mL (0.358-3.74)
[2025-02-05 09:42] LABS: BLOOD UREA NITROGEN,BUN 43 mg/dL (7-18)
[2025-02-05 09:44] LABS: APPEARANCE,URINE CLOUDY (Clear); GLUCOSE,URINE NEGATIVE (Negative); OCCULT BLOOD,URINE 2+ (Negative)
[2025-02-05 10:03] LABS: CORONAVIRUS COVID-19 NAA NEGATIVE (NEGATIVE); INFLUENZA A NAA NEGATIVE (NEGATIVE); RESPIRATORY SYNCYTIAL VIR NAA NEGATIVE (NEGATIVE)
[2025-02-05 10:15] LABS: SQUAMOUS EPITHELIAL CELLS,UR 0-5 /hpf (0-5); WBC CLUMPS,URINE FEW /hpf (NOT SEEN)
[2025-02-05] MEDS ORDERED: Ondansetron 4 MG Tab.DIS PO PRN (17:33)
[2025-02-05] MEDS ORDERED: Levofloxacin/Dextrose 5%-Water 750 MG in Premix Bag 1 BAG IV SCH (18:00)
[2025-02-05] MEDS: Heparin Sodium 5,000 Units/ML Vial SUBCUT SCH (18:36)
[2025-02-05] MEDS: Insulin Lispro 100 Unit/ML 3 ML KwikPen SUBCUT SCH (22:52)
[2025-02-06 04:44] LABS: BASOPHILS ABSOLUTE AUTO 0.1 K/mm3 (0.0-0.2); BASOPHILS PERCENT AUTO 0.7 % (0.0-1.0); EOSINOPHILS ABSOLUTE AUTO 0.4 K/mm3 (0.0-0.4); EOSINOPHILS PERCENT AUTO 4.6 % (0.0-6.0); IMMATURE GRAN ABSOLUTE AUTO 0.04 K/mm3 (0.00-0.05); IMMATURE GRAN PERCENT AUTO 0.5 % (0.0-0.4); LYMPHOCYTES ABSOLUTE AUTO 1.5 K/mm3 (1.0-4.8); LYMPHOCYTES PERCENT AUTO 20.3 % (24.0-44.0); MEAN PLATELET VOLUME 10.3 fl (9.4-12.3); MONOCYTES ABSOLUTE AUTO 0.6 K/mm3 (0.0-0.8); MONOCYTES PERCENT AUTO 7.9 % (0.0-8.0); NEUTROPHILS ABSOLUTE AUTO 5.0 K/mm3 (1.8-7.7); NEUTROPHILS PERCENT AUTO 66.0 % (41.0-71.0); NRBC ABSOLUTE 0.00 (0.00-0.02); NRBC PERCENT 0.0 % (0.0-0.2); PLATELET COUNT,PLT 148 K/mm3 (150-400); RED BLOOD CELL COUNT 3.74 M/mm3 (4.10-5.30); WHITE BLOOD CELL COUNT,WBC 7.55 K/mm3 (3.9-11.3)
[2025-02-06 05:13] LABS: A/G RATIO 0.8 (1-2); ALANINE AMINOTRANSFERASE,ALT 13.0 U/L (14-59); ASPARTATE AMNIOTRANSFERASE,AST 11.0 U/L (15-37); BILIRUBIN TOTAL 0.3 mg/dL (0.2-1.0); BLOOD UREA NITROGEN,BUN 45.0 mg/dL (7-18); CARBON DIOXIDE,CO2 29.0 mEq/L (21-32); CHLORIDE,CL 103.0 mEq/L (98-107); CREATININE 2.0 mg/dL (0.55-1.02); EST CRCL DRUG DOSING (CG) 34.94 mL/min; ESTIMATED GFR 27.0 mL/min (>60); GLUCOSE RANDOM 163.0 mg/dL (70-99); POTASSIUM,K 4.1 mEq/L (3.5-5.1); PROTEIN TOTAL,TP 6.0 g/dl (6.4-8.2); SODIUM,NA 140.0 mEq/L (136-145)
[2025-02-06] MEDS ORDERED: Non-Formulary Medication 1 Each (Levothyroxine 175 MCG Tablet) PO SCH (06:00)
[2025-02-06] MEDS: Insulin Glargine,Human Rec. Analog 100 Units/ML 3 ML Pen SUBCUT SCH (08:20)
[2025-02-06] MEDS ORDERED: Non-Formulary Medication 1 Each (Insulin Degludec [Tresiba] 100 UNIT/ML Vial) SUBCUT SCH (09:00)
[2025-02-07 04:54] LABS: BASOPHILS ABSOLUTE AUTO 0.1 K/mm3 (0.0-0.2); BASOPHILS PERCENT AUTO 0.9 % (0.0-1.0); EOSINOPHILS ABSOLUTE AUTO 0.4 K/mm3 (0.0-0.4); EOSINOPHILS PERCENT AUTO 5.7 % (0.0-6.0); IMMATURE GRAN ABSOLUTE AUTO 0.07 K/mm3 (0.00-0.05); IMMATURE GRAN PERCENT AUTO 0.9 % (0.0-0.4); LYMPHOCYTES ABSOLUTE AUTO 2.2 K/mm3 (1.0-4.8); LYMPHOCYTES PERCENT AUTO 28.0 % (24.0-44.0); MEAN PLATELET VOLUME 10.7 fl (9.4-12.3); MONOCYTES ABSOLUTE AUTO 0.6 K/mm3 (0.0-0.8); MONOCYTES PERCENT AUTO 7.8 % (0.0-8.0); NEUTROPHILS ABSOLUTE AUTO 4.4 K/mm3 (1.8-7.7); NEUTROPHILS PERCENT AUTO 56.7 % (41.0-71.0); NRBC ABSOLUTE 0.00 (0.00-0.02); NRBC PERCENT 0.0 % (0.0-0.2); PLATELET COUNT,PLT 143 K/mm3 (150-400); RED BLOOD CELL COUNT 3.88 M/mm3 (4.10-5.30); WHITE BLOOD CELL COUNT,WBC 7.69 K/mm3 (3.9-11.3)
[2025-02-07 05:37] LABS: A/G RATIO 0.8 (1-2); ALANINE AMINOTRANSFERASE,ALT 16.0 U/L (14-59); ASPARTATE AMNIOTRANSFERASE,AST 14.0 U/L (15-37); BILIRUBIN TOTAL 0.4 mg/dL (0.2-1.0); BLOOD UREA NITROGEN,BUN 44.0 mg/dL (7-18); CARBON DIOXIDE,CO2 28.0 mEq/L (21-32); CHLORIDE,CL 103.0 mEq/L (98-107); CREATININE 2.1 mg/dL (0.55-1.02); EST CRCL DRUG DOSING (CG) 33.28 mL/min; ESTIMATED GFR 26.0 mL/min (>60); GLUCOSE RANDOM 128.0 mg/dL (70-99); POTASSIUM,K 3.8 mEq/L (3.5-5.1); PROTEIN TOTAL,TP 6.3 g/dl (6.4-8.2); SODIUM,NA 141.0 mEq/L (136-145)
[2025-02-07 11:44] VITALS: BP 111/71; PULSE 62
== END 2025-02-07 13:22 | DRG 699 ==
LOC: JD.ED 08:02 → JD.MS 15:22
PROVIDERS: ADMIT Family Medicine; ATTEND Family Medicine
DX: T83.511A Infection and inflammatory reaction due to indwelling urethral catheter, initial encounter (principal); I13.0 Hypertensive heart and chronic kidney disease with heart failure and stage 1 through stage 4 chronic kidney disease, or unspecified chronic kidney disease; R79.89 Other specified abnormal findings of blood chemistry; I11.0 Hypertensive heart disease with heart failure; I50.9 Heart failure, unspecified; E78.00 Pure hypercholesterolemia, unspecified; E11.9 Type 2 diabetes mellitus without complications; N30.01 Acute cystitis with hematuria; R53.1 Weakness; I50.22 Chronic systolic (congestive) heart failure; N18.4 Chronic kidney disease, stage 4 (severe); Z68.42 Body mass index [BMI] 45.0-49.9, adult; H54.7 Unspecified visual loss; K59.00 Constipation, unspecified; M19.90 Unspecified osteoarthritis, unspecified site; M10.9 Gout, unspecified; E86.0 Dehydration; K52.9 Noninfective gastroenteritis and colitis, unspecified; E87.6 Hypokalemia; E11.22 Type 2 diabetes mellitus with diabetic chronic kidney disease; I87.2 Venous insufficiency (chronic) (peripheral); E78.5 Hyperlipidemia, unspecified; G43.909 Migraine, unspecified, not intractable, without status migrainosus; F03.90 Unspecified dementia, unspecified severity, without behavioral disturbance, psychotic disturbance, mood disturbance, and anxiety; E03.9 Hypothyroidism, unspecified; E66.9 Obesity, unspecified; D64.9 Anemia, unspecified; Z85.3 Personal history of malignant neoplasm of breast; Z90.49 Acquired absence of other specified parts of digestive tract; Z98.890 Other specified postprocedural states; Z88.8 Allergy status to other drugs, medicaments and biological substances; Z88.1 Allergy status to other antibiotic agents; Z91.040 Latex allergy status; Z79.899 Other long term (current) drug therapy; Z79.4 Long term (current) use of insulin; Z90.10 Acquired absence of unspecified breast and nipple
CPT/HCPCS: 36415; 71045; 80053; 81001; 82550; 82947 ×2; 83605; 83690; 83735; 83880; 84100; 84443; 84484; 85025; 85379; 85610; 85730; 87040 ×2; 87086; 87637; 93005; 96361; 96365; 99285; J2543; J7030; 86140; 93010; 94760; 94761; 97166-GO; 97530-GO; A9270-GY; J1644; J1815-GY; J3480; J7040